=== PATIENT | female | born 1950 | race Caucasian/White ===

== ENCOUNTER 2016-11-02 10:44 | Outpatient (CLI) | payer OTHER | END 2016-11-02 10:45 | disposition home or self-care (01) | DX: Z12.11 Encounter for screening for malignant neoplasm of colon (principal) ==

== ENCOUNTER 2016-11-20 06:35 | Outpatient (CLI) | payer OTHER | END 2016-11-20 06:36 | disposition home or self-care (01) | DX: Z12.11 Encounter for screening for malignant neoplasm of colon (principal) ==

== ENCOUNTER 2016-12-04 02:28 | Inpatient (IN) | payer OTHER ==
[2016-12-04] MEDS ORDERED: IOPAMIDOL-300 100 ML VIAL IVP ONE (05:53)
[2016-12-04] MEDS ORDERED: ENOXAPARIN 120 MG/0.8 ML SYRINGE SUBQ STA (06:28)
[2016-12-04] MEDS ORDERED: MORPHINE 2 MG/ML SYRINGE IVP STA (06:52)
[2016-12-04] MEDS ORDERED: MORPHINE 2 MG/ML SYRINGE ONE (07:27)
[2016-12-04] MEDS ORDERED: ZOLPIDEM 5 MG TABLET PO PRN (08:22)
[2016-12-04] MEDS ORDERED: HYDROcod/ACETAM 10 MG/325 MG TABLET PO PRN (08:22)
[2016-12-04] MEDS ORDERED: ONDANSETRON 4 MG/2 ML VIAL IVP PRN (08:22)
[2016-12-04] MEDS ORDERED: HYDROcod/ACETAM 5/325 MG TABLET PO PRN (08:22)
[2016-12-04] MEDS ORDERED: ACETAMINOPHEN 325 MG TABLET PO PRN (08:22)
[2016-12-04] MEDS: MORPHINE 2 MG/ML SYRINGE IVP PRN ×4 (10:21→18:34)
[2016-12-04] MEDS: POLYETHYLENE GLYCOL 3350 17 GM PACKET PO SCH (10:25)
[2016-12-04] MEDS: SODIUM CHLORIDE FLUSH 0.9% 10 ML SYRINGE IVP SCH ×2 (12:35→21:59)
[2016-12-04] MEDS ORDERED: RIVAROXABAN 15 MG TABLET PO SCH (13:00)
[2016-12-04] MEDS: SODIUM CHLORIDE FLUSH 0.9% 10 ML SYRINGE IVP PRN ×2 (15:59→18:34)
[2016-12-04] MEDS: ENOXAPARIN 120 MG/0.8 ML SYRINGE SUBQ SCH (21:59)
[2016-12-05] MEDS: MORPHINE 2 MG/ML SYRINGE IVP PRN (00:23)
[2016-12-05] MEDS: SODIUM CHLORIDE FLUSH 0.9% 10 ML SYRINGE IVP PRN (00:26)
[2016-12-05] MEDS: PANTOPRAZOLE 40 MG TABLET PO SCH (06:23)
[2016-12-05] MEDS: SODIUM CHLORIDE FLUSH 0.9% 10 ML SYRINGE IVP SCH ×3 (06:24→20:33)
[2016-12-05] MEDS: POLYETHYLENE GLYCOL 3350 17 GM PACKET PO SCH (10:22)
[2016-12-05] MEDS: ENOXAPARIN 120 MG/0.8 ML SYRINGE SUBQ SCH ×2 (10:23→20:33)
[2016-12-06] MEDS: PANTOPRAZOLE 40 MG TABLET PO SCH (05:59)
[2016-12-06] MEDS: SODIUM CHLORIDE FLUSH 0.9% 10 ML SYRINGE IVP SCH (06:00)
[2016-12-06] MEDS ORDERED: SENNA 8.6 MG TABLET PO SCH (09:00)
[2016-12-06] MEDS ORDERED: DOCUSATE SODIUM 250 MG CAPSULE PO SCH (09:00)
[2016-12-06] MEDS: POLYETHYLENE GLYCOL 3350 17 GM PACKET PO SCH (09:11)
[2016-12-06] MEDS: ENOXAPARIN 120 MG/0.8 ML SYRINGE SUBQ SCH (09:13)
== END 2016-12-06 12:45 | disposition home or self-care (01) | DRG 176 ==
DX: I26.99 Other pulmonary embolism without acute cor pulmonale (principal); R91.8 Other nonspecific abnormal finding of lung field; Z86.718 Personal history of other venous thrombosis and embolism; Z83.2 Family history of diseases of the blood and blood-forming organs and certain disorders involving the immune mechanism

== ENCOUNTER 2017-03-23 08:00 | Outpatient (CLI) | payer OTHER ==
[2017-03-23 18:40] LABS: BASOPHILS # (AUTO) 0.1 10^3/uL (0.0-0.1); EOSINOPHILS # (AUTO) 0.3 10^3/uL (0.0-0.7); EOSINOPHILS % (AUTO) 4.3 %; HCT - HEMATOCRIT 45.3 % (37.0-47.0); HGB - HEMOGLOBIN 14.7 g/dL (12.0-16.0); LYMPHOCYTES # (AUTO) 1.8 10^3/uL (1.5-3.5); LYMPHOCYTES % (AUTO) 29.6 %; MEAN CORPUSCULAR HEMOGLOBIN 28.8 pg (27.0-31.0); MEAN CORPUSCULAR HGB CONC 32.4 g/dL (32.0-36.0); MEAN CORPUSCULAR VOLUME 88.8 fL (81.0-99.0); MEAN PLATELET VOLUME 9.6 fL (7.9-10.8); MONOCYTES # (AUTO) 0.5 10^3/uL (0.0-1.0); MONOCYTES % (AUTO) 8.3 %; NEUTROPHILS # (AUTO) 3.4 10^3/uL (1.5-6.6); NEUTROPHILS % (AUTO) 56.8 %; RED CELL DISTRIBUTION WIDTH 15.3 % (12.0-15.0)
[2017-03-23 18:47] LABS: ALBUMIN/GLOBULIN RATIO 1.5 (1.0-2.2); BILIRUBIN,TOTAL 0.6 mg/dL (0.2-1.0); CALCIUM 9.4 mg/dL (8.5-10.3); CREATININE 0.8 mg/dL (0.4-1.0); POTASSIUM 3.7 mmol/L (3.5-5.0); TOTAL PROTEIN 7.4 g/dL (6.7-8.2)
== END 2017-03-23 08:01 | disposition home or self-care (01) ==
LOC: LAB.F 08:00
PROVIDERS: ATTEND Physician Assistant Medical
DX: Z51.81 Encounter for therapeutic drug level monitoring (principal)
CPT/HCPCS: 36415; 80053; 85025

== ENCOUNTER 2017-06-16 16:14 | Outpatient (CLI) | payer OTHER ==
[2017-06-16 18:31] LABS: BASOPHILS % (AUTO) 0.6 %; EOSINOPHILS # (AUTO) 0.4 10^3/uL (0.0-0.7); EOSINOPHILS % (AUTO) 5.7 %; HCT - HEMATOCRIT 45.1 % (37.0-47.0); HGB - HEMOGLOBIN 14.7 g/dL (12.0-16.0); LYMPHOCYTES # (AUTO) 1.9 10^3/uL (1.5-3.5); LYMPHOCYTES % (AUTO) 29.2 %; MEAN CORPUSCULAR HEMOGLOBIN 29.2 pg (27.0-31.0); MEAN CORPUSCULAR HGB CONC 32.6 g/dL (32.0-36.0); MEAN CORPUSCULAR VOLUME 89.6 fL (81.0-99.0); MEAN PLATELET VOLUME 9.5 fL (7.9-10.8); MONOCYTES # (AUTO) 0.7 10^3/uL (0.0-1.0); MONOCYTES % (AUTO) 11.1 %; NEUTROPHILS # (AUTO) 3.4 10^3/uL (1.5-6.6); NEUTROPHILS % (AUTO) 53.4 %; NUCLEATED RED BLOOD CELLS AUTO 0.1 /100WBC; RED BLOOD COUNT 5.03 10^6/uL (4.20-5.40); RED CELL DISTRIBUTION WIDTH 15.1 % (12.0-15.0); UNCORRECTED WHITE BLOOD COUNT 6.3 x10^3/uL; WHITE BLOOD COUNT 6.3 x10^3/uL (4.8-10.8)
[2017-06-16 18:52] LABS: ALBUMIN/GLOBULIN RATIO 1.4 (1.0-2.2); BILIRUBIN,TOTAL 0.3 mg/dL (0.2-1.0); CALCIUM 9.2 mg/dL (8.5-10.3); CREATININE 0.8 mg/dL (0.4-1.0); POTASSIUM 4.1 mmol/L (3.5-5.0); TOTAL PROTEIN 7.3 g/dL (6.7-8.2)
== END 2017-06-16 16:15 | disposition home or self-care (01) ==
LOC: LAB.F 16:14
PROVIDERS: ATTEND Physician Assistant Medical
DX: R06.02 Shortness of breath (principal)
CPT/HCPCS: 36415; 80053; 85025

== ENCOUNTER 2017-06-17 12:17 | Outpatient (CLI) | payer OTHER ==
--- NOTE | 2017-06-17 17:13 | CT Report ---
CT PULMONARY ANGIOGRAM: 06/17/2017 CLINICAL INDICATION: Atypical chest pain, shortness of breath, fatigue, malaise. COMPARISON: 12/04/[address] images of the chest were obtained with 100 mL Isovue-300 intravenously. Sagittal and brasher l 3D reconstructions were performed. In accordance with CT protocol optimization, one or more of the following dose reduction techniques w ere utilized for this exam: automated exposure control, adjustment of mA and/or KV based on patient size, or use of iterative reconstructive technique. The heart and great vessels are unremarkable. Previously seen bilateral pulmonary emboli have resolv ed. No new emboli are seen. No hilar or mediastinal lymphadenopathy is present. The lungs again de monstrate patchy ground-glass opacities, without significant interval change. Small fissural nodule in the left lung is stable, measuring 8 mm. No effusion or pneumothorax is present. Osseous structu res demonstrate degenerative changes. Limited evaluation of upper abdominal structures demonstrates normal adrenal glands. IMPRESSION: NO EVIDENCE OF PULMONARY EMBOLUS. STABLE GROUND-GLASS OPACITIES. JOB #: [id number] EXT JOB #:[id number]
== END 2017-06-17 12:18 | disposition home or self-care (01) ==
LOC: DI 12:17
PROVIDERS: ATTEND Physician Assistant Medical
DX: R91.8 Other nonspecific abnormal finding of lung field (principal)
CPT/HCPCS: 71275

== ENCOUNTER 2018-03-31 10:57 | Outpatient (CLI) | payer OTHER ==
--- NOTE | 2018-03-31 20:02 | CT Report ---
Procedure Date: 03/31/2018 Accession Number: [id number] / [id number] Procedure: CT - Chest W/O CPT Code: FULL RESULT: EXAM: CT CHEST EXAM DATE: 03/31/2018 11:14 AM. CLINICAL HISTORY: Pulmonary nodule. COMPARISONS: CTA chest 06/17/2017. TECHNIQUE: Routine helical CT imaging was performed through the chest. IV contrast: None. Reconstructions: Coronal and sagittal. In accordance with CT protocol optimization, one or more of the following dose reduction techniques were utilized for this exam: automated exposure control, adjustment of mA and/or KV based on patient size, or use of iterative reconstructive technique. FINDINGS: Lungs/Pleura: Stable 6 x 8 mm juxtafissural medial left lower lobe nodule (29/4) and 2 mm focal thickening lateral left oblique fissure. Stable 2 mm right upper lobe (25/4) and left upper lobe nodules (25). No new or enlarging nodule. Mild dependent and basilar atelectasis or scarring. No consolidation or vascular congestion. No central endobronchial obstructing lesion or bronchiectasis. No pneumothorax or pleural effusion. Mediastinum: No mediastinal or hilar adenopathy. Normal heart size without pericardial effusion. Stable caliber mediastinal vasculature. Bones: Degenerative changes of the spine suggestive of DISH. No aggressive bone destructive process. Visualized Abdomen: Mild hepatic steatosis. No adrenal nodule. A stable exophytic posterior left renal nodule measures 1.3 cm in diameter. IMPRESSION: 1. Stable small lung nodules, including an 8 mm juxtafissural left lower lobe nodule which could represent intrapulmonary node. Recommend further follow-up at 18-12 months per Fleischner Society guidelines. 2. No pathologic adenopathy. RADIA
== END 2018-03-31 10:58 | disposition home or self-care (01) ==
LOC: DI 10:57
PROVIDERS: ATTEND Physician Assistant Medical
DX: R91.8 Other nonspecific abnormal finding of lung field (principal)
CPT/HCPCS: 71250

== ENCOUNTER 2018-07-11 14:08 | Outpatient (CLI) | payer OTHER ==
[2018-07-11 18:00] LABS: BASOPHILS % (AUTO) 0.7 %; EOSINOPHILS # (AUTO) 0.2 10^3/uL (0.0-0.7); EOSINOPHILS % (AUTO) 4.5 %; HGB - HEMOGLOBIN 14.4 g/dL (12.0-16.0); LYMPHOCYTES # (AUTO) 1.6 10^3/uL (1.5-3.5); LYMPHOCYTES % (AUTO) 30.8 %; MEAN CORPUSCULAR HEMOGLOBIN 29.4 pg (27.0-31.0); MEAN CORPUSCULAR HGB CONC 33.4 g/dL (32.0-36.0); MEAN PLATELET VOLUME 9.6 fL (7.9-10.8); MONOCYTES # (AUTO) 0.6 10^3/uL (0.0-1.0); MONOCYTES % (AUTO) 10.6 %; NEUTROPHILS # (AUTO) 2.8 10^3/uL (1.5-6.6); NEUTROPHILS % (AUTO) 53.4 %; PLT - PLATELET COUNT 198 10^3/uL (130-450); RED BLOOD COUNT 4.89 10^6/uL (4.20-5.40); RED CELL DISTRIBUTION WIDTH 14.7 % (12.0-15.0); WHITE BLOOD COUNT 5.3 x10^3/uL (4.8-10.8)
[2018-07-11 18:13] LABS: ALBUMIN/GLOBULIN RATIO 1.3 (1.0-2.2); BILIRUBIN,TOTAL 0.5 mg/dL (0.2-1.0); CALCIUM 9.1 mg/dL (8.5-10.3); CREATININE 0.9 mg/dL (0.4-1.0)
== END 2018-07-11 14:09 | disposition home or self-care (01) ==
LOC: LAB.F 14:08
PROVIDERS: ATTEND Physician Assistant Medical
DX: Z79.01 Long term (current) use of anticoagulants (principal); Z51.81 Encounter for therapeutic drug level monitoring
CPT/HCPCS: 36415; 80053; 85025

== ENCOUNTER 2019-01-30 15:45 | Outpatient (CLI) | payer OTHER ==
--- NOTE | 2019-01-31 10:36 | CT Report ---
Reason: PULMONARY NODULE Procedure Date: 01/30/2019 Accession Number: [id number] / [id number] Procedure: CT - CHEST WO CPT Code: FULL RESULT: EXAM: CT CHEST EXAM DATE: 01/30/2019 04:03 PM. CLINICAL HISTORY: Pulmonary nodule. COMPARISONS: CHEST W/O 03/31/2018 11:12 AM. TECHNIQUE: Routine helical CT imaging was performed through the chest. IV contrast: None. Reconstructions: Coronal and sagittal. In accordance with CT protocol optimization, one or more of the following dose reduction techniques were utilized for this exam: automated exposure control, adjustment of mA and/or KV based on patient size, or use of iterative reconstructive technique. FINDINGS: Lungs/Pleura: Stable 8 mm juxta fissural medial left lower lobe nodule now on image 34 of series 3. Stable 2 mm nodule in the left upper lobe is now on image 30. A 2 mm right upper lobe nodule is also stable on image 29. A tiny right lower lobe sub-2 mm nodule image 28 is stable. A 3 mm right upper lobe nodule image 30 is stable. A 2 mm right lower lobe nodule image 33 is stable. A 2 mm right lower lobe nodule image 46 is stable. A 2 mm nodule in the left lower lobe on image 45 is stable a 3 mm nodule in the left lower lobe is stable on image 42. A sub-2 mm nodule on image 40 in the left lower lobe is stable. A 3 mm nodule on image 36 in the left lower lobe is stable. A 3 mm right upper lobe nodule on image 24 is now slightly more prominent which is potentially due to differences in technique. Mediastinum: A few prominent mediastinal lymph nodes do not meet size criteria. There is no definite hilar lymphadenopathy. There is no pericardial effusion. Bones: No aggressive osseous lesions are detected. Visualized Abdomen: A 1.6 cm left renal cyst measures slightly greater than simple, indeterminate. Other: None. IMPRESSION: Long-term stability of numerous pulmonary nodules. A 3 mm nodule in the right upper lobe appears slightly more prominent, possibly unchanged accounting for differences in the technique. Indeterminate left renal cyst. RECOMMENDATIONS: Left renal ultrasound to determine whether this cyst can be characterized as simple. Depending on the patient's risk factors, low-dose CT of the chest to followup the 3 mm right upper lobe nodule for manager long term care stability versus no further followup given the long-term stability of all other nodules and possible stability of this nodule are reasonable. RADIA
== END 2019-01-30 15:46 | disposition home or self-care (01) ==
LOC: DI 15:45
PROVIDERS: ATTEND Physician Assistant Medical
DX: R91.8 Other nonspecific abnormal finding of lung field (principal)
CPT/HCPCS: 71250

== ENCOUNTER 2019-03-23 16:04 | Outpatient (CLI) | payer OTHER ==
--- NOTE | 2019-03-23 23:57 | Ultrasound Report ---
Reason: KIDNEY MASS Procedure Date: 03/23/2019 Accession Number: [id number] / [id number] Procedure: US - Retroperitoneal CPT Code: FULL RESULT: EXAM: RENAL ULTRASOUND EXAM DATE: 03/23/2019 04:48 PM. CLINICAL HISTORY: Renal mass/cyst seen on prior CT. COMPARISON: CHEST W/O 01/30/2019 4:01 PM. TECHNIQUE: Real-time scanning was performed with static images obtained. FINDINGS: Right Kidney: 10.6 x 4.9 x 4.7 cm. Normal echotexture with no stones, contour-deforming masses, or hydronephrosis. Left Kidney: 11.6 x 5.4 x 4.9 cm. Normal echotexture with no stones, contour-deforming masses, or hydronephrosis. Superior pole 1.5 cm cyst noted. Bladder: Bilateral jets seen. The prevoid bladder volume was 83 cc. The postvoid bladder volume was 7 cc. Other: None. IMPRESSION: Superior pole left renal cyst corresponding to the CT abnormality, otherwise unremarkable renal ultrasound. RADIA
== END 2019-03-23 16:05 | disposition home or self-care (01) ==
LOC: DI 16:04
PROVIDERS: ATTEND Physician Assistant Medical
DX: Q61.01 Congenital single renal cyst (principal)
CPT/HCPCS: 76770

== ENCOUNTER 2020-02-07 15:47 | Outpatient (CLI) | payer OTHER | END 2020-02-07 15:48 | disposition home or self-care (01) | LOC: COV 15:47 | PROVIDERS: ATTEND Family Medicine | DX: R53.83 Other fatigue (principal) | CPT/HCPCS: 81599 ==

== ENCOUNTER 2020-08-27 09:15 | Outpatient (CLI) | payer OTHER | END 2020-08-27 09:16 | disposition home or self-care (01) | LOC: COV 09:15 | PROVIDERS: ATTEND Family Medicine | DX: R05 Cough (principal); Z20.828 Contact with and (suspected) exposure to other viral communicable diseases; R09.81 Nasal congestion; R68.83 Chills (without fever); J02.9 Acute pharyngitis, unspecified ==

== ENCOUNTER 2020-09-02 08:00 | Outpatient (CLI) | payer OTHER ==
[2020-09-02 15:35] LABS: BASOPHILS % (AUTO) 0.8 %; EOSINOPHILS # (AUTO) 0.3 10^3/uL (0.0-0.7); EOSINOPHILS % (AUTO) 5.7 %; HGB - HEMOGLOBIN 15.5 g/dL (12.0-16.0); LYMPHOCYTES # (AUTO) 1.2 10^3/uL (1.5-3.5); LYMPHOCYTES % (AUTO) 25.1 %; MEAN CORPUSCULAR HGB CONC 31.1 g/dL (32.0-36.0); MEAN CORPUSCULAR VOLUME 93.3 fL (81.0-99.0); MEAN PLATELET VOLUME 10.6 fL (7.9-10.8); MONOCYTES # (AUTO) 0.5 10^3/uL (0.0-1.0); MONOCYTES % (AUTO) 9.5 %; NEUTROPHILS # (AUTO) 2.9 10^3/uL (1.5-6.6); NEUTROPHILS % (AUTO) 58.5 %; PLT - PLATELET COUNT 219 10^3/uL (130-450); RED BLOOD COUNT 5.34 10^6/uL (4.20-5.40)
[2020-09-02 15:43] LABS: ALBUMIN 4.3 g/dL (3.2-5.5); ALBUMIN/GLOBULIN RATIO 1.4 (1.0-2.2); BILIRUBIN,TOTAL 0.8 mg/dL (0.2-1.0); CALCIUM 9.5 mg/dL (8.5-10.3); CREATININE 0.8 mg/dL (0.4-1.0); TOTAL PROTEIN 7.3 g/dL (6.7-8.2)
== END 2020-09-02 23:59 | disposition home or self-care (01) ==
LOC: LAB.S 08:00
PROVIDERS: ATTEND Physician Assistant Medical
DX: B34.9 Viral infection, unspecified (principal)
CPT/HCPCS: 36415; 80053; 85025

== ENCOUNTER 2020-09-27 15:15 | Outpatient (CLI) | payer OTHER ==
--- NOTE | 2020-09-27 17:26 | CT Report ---
PROCEDURE: CHEST WO INDICATIONS: PULMONARY NODULE TECHNIQUE: Noncontrast 5 mm thick sections acquired from the pulmonary apices to the posterior costophrenic angl es. 7 mm thick coronal and sagittal MIP reformats were then acquired. For radiation dose reduction, the following was used: automated exposure control, adjustment of mA and/or kV according to patient size. COMPARISON: CT chest 04/01/2018, 01/31/2019. FINDINGS: Image quality: Excellent. Lungs and pleura: No acute air space opacities. No pleural effusions or pneumothorax. Central and peripheral airways are patent and normal in caliber. Previously identified scattered bilateral pulmo nary nodules are unchanged in size and number. No new nodules are identified. Mediastinum: Heart size is normal. No pericardial effusion. No mediastinal adenopathy by size crit eria. Thoracic aorta and central pulmonary arteries are normal in size. Esophagus is normal in cecy mickey. No hiatal hernia. Bones and chest wall: No suspicious bony lesions. No vertebral body compression fractures. No axil therese or supraclavicular adenopathy by size criteria. The thyroid is normal in size. Abdomen: Stable appearance of indeterminate exophytic left renal lesion, noted to be renal cyst on u ltrasound of 03/24/2019. Visualized upper abdominal solid organs and bowel loops appear normal in the absence of contrast. IMPRESSION: Stable appearance of bilateral pulmonary nodules compared to 2018 and 2019. The 3 mm right upper lobe nodule partially minimally increase in size in 2019 is unchanged. Given stability, findings are like ly benign and no additional follow-up is recommended unless clinically indicated. Reviewed by: Adelaida Giles MD on 09/27/2020 5:24 PM PST Approved by: Adelaida Giles MD on 09/27/2020 5:24 PM PST Station ID: [id number]
== END 2020-09-27 15:16 | disposition home or self-care (01) ==
LOC: DI 15:15
PROVIDERS: ATTEND Physician Assistant Medical
DX: R91.1 Solitary pulmonary nodule (principal)
CPT/HCPCS: 71250

== ENCOUNTER 2021-03-07 08:00 | Outpatient (CLI) | payer OTHER | END 2021-03-07 23:59 | disposition home or self-care (01) | LOC: LAB.S 08:00 | PROVIDERS: ATTEND Emergency Medicine | DX: N39.0 Urinary tract infection, site not specified (principal); M54.5 Low back pain | CPT/HCPCS: 81001; 87086 ==

== ENCOUNTER 2021-03-11 08:00 | Outpatient (CLI) | payer OTHER ==
--- NOTE | 2021-03-11 12:32 | XRAY Report ---
PROCEDURE: Abdomen Acute INDICATIONS: FLANK PAIN TECHNIQUE: One view chest and two views of the abdomen were acquired. COMPARISON: None FINDINGS: Surgical changes and devices: None. Chest: Lungs are clear. Heart size is normal. No pleural effusions. No pneumoperitoneum. Abdomen: Bowel gas pattern is normal. No suspicious calcifications. Visualized solid organ contour s appear normal. Bones: No suspicious bony lesions. IMPRESSION: No visualized cause of flank pain. Reviewed by: Adelaida Giles MD on 03/11/2021 12:31 PM PDT Approved by: Adelaida Giles MD on 03/11/2021 12:31 PM PDT Station ID: [id number]
== END 2021-03-11 23:59 | disposition home or self-care (01) ==
LOC: DI.S 08:00
PROVIDERS: ATTEND Physician Assistant Medical
DX: M54.9 Dorsalgia, unspecified (principal); R10.9 Unspecified abdominal pain

== ENCOUNTER 2021-03-31 15:18 | Outpatient (CLI) | payer OTHER | END 2021-03-31 15:19 | disposition home or self-care (01) | LOC: LAB.S 15:18 | PROVIDERS: ATTEND Physician Assistant | DX: Z79.01 Long term (current) use of anticoagulants (principal) | CPT/HCPCS: 36416; 85610 ==

== ENCOUNTER 2021-05-08 14:52 | Outpatient (CLI) | payer OTHER ==
--- NOTE | 2021-05-08 16:00 | MRI Report ---
PROCEDURE: Brain W/O INDICATIONS: TIA TECHNIQUE: Noncontrast axial T1 spin echo, axial T2 fast spin echo, sagittal and axial FLAIR, coronal T2 fast sp in echo, axial gradient echo, axial diffusion and ADC through the brain. COMPARISON: None. FINDINGS: Image quality: Excellent. CSF Spaces: Basal cisterns are patent. No extra-axial fluid collections. Ventricles are normal in size and shape. Brain: No intracranial masses or hemorrhage. Age-related volume loss and moderate small vessel ische jamal change. Brainstem appears normal. Diffusion-weighted images demonstrate no acute ischemic insult . No chronic ischemic insults. Normal intravascular flow voids are present. Skull and face: Calvarium has normal marrow signal. Orbits appear normal. Sinuses: Left sphenoid sinus mucosal thickening and mild air-fluid level. IMPRESSION: 1. Age-related volume loss and moderate small vessel ischemic change. 2. No evidence acute stroke, hemorrhage, or mass. 3. Mild acute on chronic left sphenoid sinusitis. Reviewed by: Jim To MD on 05/08/2021 3:59 PM PDT Approved by: Jim To MD on 05/08/2021 3:59 PM PDT Station ID: [id number]
== END 2021-05-08 14:53 | disposition home or self-care (01) ==
LOC: DI 14:52
PROVIDERS: ATTEND Physician Assistant
DX: J32.9 Chronic sinusitis, unspecified (principal)

== ENCOUNTER 2021-06-03 09:33 | Outpatient (CLI) | payer OTHER ==
[2021-06-03 14:47] LABS: INR 1.1 (0.8-1.2); PT - PROTHROMBIN TIME 12.7 secs (9.9-12.6)
[2021-06-03 16:21] LABS: CHOL/HDL RATIO 4.2 (<4.4); CHOLESTEROL 236 mg/dL; HDL CHOLESTEROL 56 mg/dL; LDL CHOLESTEROL,CALCULATED 158 mg/dL; LDL/HDL RATIO 2.8 (<4.4); TRIGLYCERIDES 112 mg/dL; VLDL CHOLESTEROL 22 mg/dL
== END 2021-06-03 09:34 | disposition home or self-care (01) ==
LOC: LAB.S 09:33
PROVIDERS: ATTEND Physician Assistant
DX: Z00.00 Encounter for general adult medical examination without abnormal findings (principal); Z79.01 Long term (current) use of anticoagulants; R53.83 Other fatigue; Z78.0 Asymptomatic menopausal state; Z51.81 Encounter for therapeutic drug level monitoring; D68.51 Activated protein C resistance
CPT/HCPCS: 36415; 80061; 82306; 83721; 85610

== ENCOUNTER 2021-09-07 11:30 | Outpatient (CLI) | payer OTHER | END 2021-09-07 11:31 | disposition critical access hospital (66) | LOC: EMS 11:30 | DX: R53.1 Weakness (principal); R55 Syncope and collapse | CPT/HCPCS: A0425; A0429 ==

== ENCOUNTER 2021-09-07 12:12 | Inpatient (IN) | payer MEDICARE, OTHER ==
[2021-09-07] MEDS ORDERED: HYDROmorphone 1 MG/ML CARPUJECT IVP STA (12:26)
[2021-09-07] MEDS ORDERED: SODIUM CHLORIDE 0.9% 1,000 ML IV STA (12:26)
[2021-09-07] MEDS ORDERED: TETANUS/DIPHTHERIA/PERTUSSIS 0.5 ML SYRINGE IM ONE (12:26)
--- NOTE | 2021-09-07 12:30 | ED Physician Documentation ---
History of Present Illness - Stated complaint Stated Complaint: COVID + GLF - Chief complaint Chief Complaint: General - History obtained from History obtained from: Patient, EMS - Additonal information Additional information: 71-year-old woman with history of pulmonary emboli in November 2016 on Xarelto. Otherwise fairly healthy. She is a little vague on the time course but started to feel ill may be a week or week and a half ago. Subsequently it sounded like she had positive antigen testing for Covid done by [facility] a little less than a week ago. She has progressively declined since then with generalized weakness and multiple episodes of syncope. She had a syncopal episode she thinks maybe 4 to 5 days ago where she fell and hit her head. She has a lot of facial pain and back pain from that. She does not recall the incident. Over the last few days she has been bedbound and dysfunctional due to weakness. Incontinent of stool and bladder. When queried what changed today to necessitate coming to the emergency department when the trauma was a few days ago she notes that her can no longer take care of her because now she is incontinent of stool, he was doing okay when she was just incontinent of urine. She is not vaccinated against Covid and does not regret that decision despite her current illness. Review of Systems Ten Systems: 10 systems reviewed and negative Constitutional: reports: Chills, Myalgias, Fatigue Nose: denies: Rhinorrhea / runny nose Throat: denies: Sore throat Cardiac: denies: Chest pain / pressure, Palpitations Respiratory: denies: Dyspnea, Cough PD PAST MEDICAL HISTORY - Past Medical History Cardiovascular: Deep vein thrombosis - Past Surgical History Past Surgical History: Yes General: Appendectomy HEENT: Tonsil/Adenoidectomy - Present Medications Home Medications: Ambulatory Orders Medication Instructions Recorded Confirmed Rivaroxaban [Xarelto] 20 mg PO DAILY 09/07/21 09/07/21 - Allergies Allergies/Adverse Reactions: Allergies Allergy/AdvReac Type Severity Reaction Status Date / Time Sulfa (Sulfonamide Allergy Hives Verified 09/07/21 12:25 Antibiotics) - Social History Does the pt smoke?: No Smoking Status: Never smoker Does the pt drink ETOH?: No Does the pt have substance abuse?: No - Immunizations Immunizations are current?: No - POLST Patient has POLST: No PD ED PE NORMAL - Vitals Vital signs reviewed: Yes - General General: Alert and oriented X 3, Well developed/nourished, Other (She is quite generally weak, cannot sit up unassisted.) - HEENT HEENT: Other (Bilateral raccoon eyes and tender over the bridge of the nose without other facial bony tenderness. No evidence of entrapment.) - Neck Neck: Supple, no meningeal sign, No bony TTP - Cardiac Cardiac: RRR, No murmur - Respiratory Respiratory: No respiratory distress, Clear bilaterally - Abdomen Abdomen: Normal bowel sounds, Soft, Non tender - Back Back: Other (Tender to the mid and upper thoracic spine as well as the mid lumbar spine) - Derm Derm: Normal color, Warm and dry - Neuro Neuro: Alert and oriented X 3, Normal speech Eye Opening: Spontaneous Motor: Obeys Commands Verbal: Oriented GCS Score: 15 Results - Vitals Vitals: Vital Signs - 24 hr 09/07/21 09/07/21 09/07/21 12:21 12:55 13:25 Temperature 36.9 C 36.9 C 36.6 C Heart Rate 95 78 75 Respiratory 17 15 14 Rate Blood Pressure 133/65 H 111/81 H 117/59 L O2 Saturation 97 92 97 09/07/21 09/07/21 09/07/21 14:00 14:30 15:40 Temperature 36.7 C 36.7 C Heart Rate 77 75 71 Respiratory 21 17 17 Rate Blood Pressure 111/59 L 126/62 O2 Saturation 98 96 96 09/07/21 16:12 Temperature Heart Rate 72 Respiratory 17 Rate Blood Pressure 199/63 H O2 Saturation 96 Oxygen O2 Source Room air - EKG (time done) 1333 Rate: Rate (enter#) (78) Rhythm: NSR [place]: Normal Intervals: Normal [place] QRS: Normal Ischemia: Normal ST segments - Labs Labs: Laboratory Tests 09/07/21 09/07/21 09/07/21 12:35 12:35 12:35 WBC 3.9 L RBC 5.55 H Hgb 16.2 H Hct 49.6 H MCV 89.4 MCH 29.2 MCHC 32.7 RDW 13.2 Plt Count 123 L MPV 10.8 Neut # (Auto) 2.8 Lymph # (Auto) 0.7 L [place] # (Auto) 0.4 Eos # (Auto) 0.0 Baso # (Auto) 0.0 Absolute Nucleated RBC 0.00 Nucleated RBC % 0.0 D-Dimer 358.5 H Sodium 135 Potassium 3.8 Chloride 97 L Carbon Dioxide 29 Anion Gap 9.0 BUN 13 Creatinine 0.8 Estimated GFR (MDRD) 71 L Glucose 104 H Calcium 8.8 Magnesium 2.3 Total Bilirubin 1.2 H AST 32 ALT 32 Alkaline Phosphatase 64 Troponin I High Sens Total Protein 7.3 Albumin 3.7 Globulin 3.6 Albumin/Globulin Ratio 1.0 Nasal Adenovirus (PCR) Nasal B. parapertussis DNA (PCR) Nasal Coronavir 229E PCR Nasal Coronavir HKU1 PCR Nasal Coronavir NL63 PCR Nasal Coronavir OC43 PCR Nasal Enterovir/Rhinovir PCR Nasal Influenza B PCR Nasal Influenza A PCR Nasal Parainfluen 1 PCR Nasal Parainfluen 2 PCR Nasal Parainfluen 3 PCR Nasal Parainfluen 4 PCR Nasal RSV (PCR) Nasal B.pertussis DNA PCR Nasal C.pneumoniae (PCR) Matthew Human Metapneumo PCR Nasal M.pneumoniae (PCR) Nasal SARS-CoV-2 (PCR) 09/07/21 09/07/21 12:35 12:35 WBC RBC Hgb Hct MCV MCH MCHC RDW Plt Count MPV Neut # (Auto) Lymph # (Auto) [place] # (Auto) Eos # (Auto) Baso # (Auto) Absolute Nucleated RBC Nucleated RBC % D-Dimer Sodium Potassium Chloride Carbon Dioxide Anion Gap BUN Creatinine Estimated GFR (MDRD) Glucose Calcium Magnesium Total Bilirubin AST ALT Alkaline Phosphatase Troponin I High Sens 4.7 Total Protein Albumin Globulin Albumin/Globulin Ratio Nasal Adenovirus (PCR) NOT DETECTED Nasal B. parapertussis DNA (PCR) NOT DETECTED Nasal Coronavir 229E PCR NOT DETECTED Nasal Coronavir HKU1 PCR NOT DETECTED Nasal Coronavir NL63 PCR NOT DETECTED Nasal Coronavir OC43 PCR NOT DETECTED Nasal Enterovir/Rhinovir PCR NOT DETECTED Nasal Influenza B PCR NOT DETECTED Nasal Influenza A PCR NOT DETECTED Nasal Parainfluen 1 PCR NOT DETECTED Nasal Parainfluen 2 PCR NOT DETECTED Nasal Parainfluen 3 PCR NOT DETECTED Nasal Parainfluen 4 PCR NOT DETECTED Nasal RSV (PCR) NOT DETECTED Nasal B.pertussis DNA PCR NOT DETECTED Nasal C.pneumoniae (PCR) NOT DETECTED Matthew Human Metapneumo PCR NOT DETECTED Nasal M.pneumoniae (PCR) NOT DETECTED Nasal SARS-CoV-2 (PCR) DETECTED A - Rads (name of study) CT of the head and facial bones demonstrates no intracranial abnormality. She does have nasal bone fractures and likely blood in the paranasal sinuse Radiology: EMP read contemporaneously CT of the chest with contrast demonstrates interstitial infiltrates consistent with Covid pneumonia, no trauma Radiology: EMP read contemporaneously CT of the cervical spine shows no trauma, she does have degenerative changes and apical interstitial infiltrates Radiology: EMP read contemporaneously CT of the abdomen pelvis, 20% anterior wedge deformity compression of L1. Otherwise negative Radiology: EMP read contemporaneously PD MEDICAL DECISION MAKING - ED course ED course: 71-year-old woman who is anticoagulated has had has had multiple syncopal episodes likely related to volume depletion related to recent diagnosis of Covid. She is not hypoxic here but is profoundly weak unable to sit up on her own without assistance. She has multiple falls multiple injuries but thankfully on advanced imaging the only major posttraumatic findings are nondisplaced nasal bone fracture and a 20% compression deformity of the anterior part of L1 which can be managed conservatively. She was unable to be discharged home due to her condition and I spoke with Dr. Ocasio for observation. Departure - Departure Disposition: ED Place in Observation Clinical Impression: Pneumonia due to COVID-19 virus, Adequate anticoagulation on anticoagulant therapy, Generalized weakness Syncope Qualifiers: Syncope type: unspecified Qualified Code(s): R55 - Syncope and collapse Facial contusion Qualifiers: Encounter type: initial encounter Qualified Code(s): S00.83XA - Contusion of other part of head, initial encounter Nasal bone fracture Qualifiers: Encounter type: initial encounter Fracture type: closed Qualified Code(s): S02.2XXA - Fracture of nasal bones, initial encounter for closed fracture Diarrhea Qualifiers: Diarrhea type: presumed infectious Qualified Code(s): R19.7 - Diarrhea, unspecified Incontinence of bowel Qualifiers: Fecal incontinence type: full incontinence of feces Qualified Code(s): R15.9 - Full incontinence of feces Compression fracture of L1 lumbar vertebra Qualifiers: Encounter type: initial encounter Qualified Code(s): S32.010A - Wedge compression fracture of first lumbar vertebra, initial encounter for closed fracture Condition: Fair Discharge Date/Time: 09/07/21 17:20
[2021-09-07 12:49] LABS: BASOPHILS % (AUTO) 0.3 %; EOSINOPHILS % (AUTO) 0.5 %; HCT - HEMATOCRIT 49.6 % (37.0-47.0); HGB - HEMOGLOBIN 16.2 g/dL (12.0-16.0); LYMPHOCYTES # (AUTO) 0.7 10^3/uL (1.5-3.5); MEAN CORPUSCULAR HEMOGLOBIN 29.2 pg (27.0-31.0); MEAN CORPUSCULAR HGB CONC 32.7 g/dL (32.0-36.0); MEAN CORPUSCULAR VOLUME 89.4 fL (81.0-99.0); MEAN PLATELET VOLUME 10.8 fL (7.9-10.8); MONOCYTES # (AUTO) 0.4 10^3/uL (0.0-1.0); MONOCYTES % (AUTO) 10.1 %; NEUTROPHILS # (AUTO) 2.8 10^3/uL (1.5-6.6); NEUTROPHILS % (AUTO) 71.6 %; PLT - PLATELET COUNT 123 10^3/uL (130-450); RED BLOOD COUNT 5.55 10^6/uL (4.20-5.40); RED CELL DISTRIBUTION WIDTH 13.2 % (12.0-15.0); WHITE BLOOD COUNT 3.9 x10^3/uL (4.8-10.8)
[2021-09-07 13:06] LABS: ALBUMIN 3.7 g/dL (3.2-5.5); CALCIUM 8.8 mg/dL (8.5-10.3); CREATININE 0.8 mg/dL (0.4-1.0); MAGNESIUM 2.3 mg/dL (1.7-2.8); POTASSIUM 3.8 mmol/L (3.5-5.0); TOTAL PROTEIN 7.3 g/dL (6.7-8.2)
[2021-09-07 13:19] LABS: BILIRUBIN,TOTAL 1.2 mg/dL (0.2-1.0)
[2021-09-07 14:12] LABS: B. PARAPERTUSSIS- RESP PCR PAN NOT DETECTED; B. PERTUSSIS- RESP PCR PANEL NOT DETECTED; C. PNEUMONIAE- RESP PCR PANEL NOT DETECTED; CORONAVIRUS 229E-RESP PCR NOT DETECTED; CORONAVIRUS HKU1-RESP PCR NOT DETECTED; CORONAVIRUS NL63-RESP PCR NOT DETECTED; CORONAVIRUS OC43-RESP PCR NOT DETECTED; HUMAN METAPNEUMOVIRUS NOT DETECTED; INFLUENZA A- RESP PCR PANEL NOT DETECTED; INFLUENZA B - RESP PCR PANEL NOT DETECTED; M. PNEUMONIAE- RESP PCR PANEL NOT DETECTED; PARAINFLUENZA VIRUS 1 NOT DETECTED; PARAINFLUENZA VIRUS 2 NOT DETECTED; PARAINFLUENZA VIRUS 3 NOT DETECTED; PARAINFLUENZA VIRUS 4 NOT DETECTED; RHINOVIRUS/ENTEROVIRUS NOT DETECTED; RSV- RESP PCR PANEL NOT DETECTED
[2021-09-07 14:13] LABS: SARS-CoV-2 -RESP PCR PANEL DETECTED
[2021-09-07] MEDS ORDERED: IOVERSOL 320 100 ML VIAL IVP ONE ×2 (14:37→18:05)
--- NOTE | 2021-09-07 15:41 | CT Report ---
PROCEDURE: MAXILLOFACIAL WO INDICATIONS: head injury, facial inj, back inj, anticoagulated TECHNIQUE: Noncontrast 1.5 mm thick axial images acquired from the mandible through the frontal sinuses, with co nery and sagittal reformatting. For radiation dose reduction, the following was used: automated ex posure control, adjustment of mA and/or kV according to patient size. COMPARISON: Correlation is made with the accompanying CT examinations, 08/30/2021. FINDINGS: Image quality: Excellent. Bones and teeth: Mildly displaced nasal bone fractures are seen, which are deviated to the left. No definite associated nasal septal fracture can be seen. Orbital [place] are intact. Sinus [place] show no fracture or deformity. Visualized portions of the man dible demonstrate no fractures or subluxation. Zygomatic arches are intact. Pterygoid plates are in tact. Visualized portions of the skull base and auditory canals are intact. Sinuses: There is moderate mucosal thickening within the frontal sinuses, with moderate to prominent mucosal thickening within the ethmoid air cells. There is moderate to prominent left sphenoid sinus m ucosal thickening with mild right sphenoid sinus mucosal thickening. Mild mucosal thickening is seen within the maxillary sinuses. No fluid seen within the sinuses, measures roughly 60 Hounsfield units. Soft tissues: No edema, masses, or fluid collections. No enlarged lymph nodes. No soft tissue lace rations or debris. Vascular: Visualized vascular structures appear normal in the absence of contrast. Bony vascular fo ramina and canals are intact. IMPRESSION: Mildly displaced nasal bone fractures. Hyperdense material can be seen within the paranasal sinuses, which is attributed to blood, given the history of trauma. Reviewed by: Dean Bradley MD on 09/07/2021 2:39 PM [facility] Approved by: Dean Bradley MD on 09/07/2021 2:39 PM [facility] Station ID: [id number]
--- NOTE | 2021-09-07 15:42 | CT Report ---
PROCEDURE: HEAD WO INDICATIONS: head injury, facial inj, back inj, anticoagulated TECHNIQUE: Noncontrast 4.5 mm thick angled axial sections acquired from the foramen magnum to the vertex. For r adiation dose reduction, the following was used: automated exposure control, adjustment of mA and/or kV according to patient size. COMPARISON: Correlation is made with the accompanying CT examinations, 09/07/2021. FINDINGS: Image quality: Excellent. CSF spaces: Basal cisterns are patent. No extra-axial fluid collections. Ventricles are normal in size and shape. Brain: No midline shift. No intracranial masses or hemorrhage. Disla-white matter interface is norm al. Skull and face: Nasal bone fractures are seen. Calvarium and visualized facial bones are intact, wit hout suspicious lesions. Hyperostosis frontalis is incidentally noted, which is not frankly abnormal for a female patient of this age. Sinuses: Hyperdense material can be seen within the paranasal sinuses. No significant abnormal fluid can be seen within the mastoid air cells or within the middle ear cavities. IMPRESSION: No intracranial hemorrhage is seen. No significant intracranial abnormality is seen. Nasal bone fractures are seen. Hyperdense material can be seen within the paranasal sinuses, which is attributed to blood, given the history of trauma. Reviewed by: Dean Bradley MD on 09/07/2021 2:41 PM [facility] Approved by: Dean Bradley MD on 09/07/2021 2:41 PM [facility] Station ID: [id number]
--- NOTE | 2021-09-07 15:44 | CT Report ---
PROCEDURE: CERVICAL SPINE WO INDICATIONS: head injury, facial inj, back inj, anticoagulated TECHNIQUE: Noncontrast 3 mm thick sections acquired from the skull base to the T4 level. Sagittal and coronal r eformats were then constructed. For radiation dose reduction, the following was used: automated exp osure control, adjustment of mA and/or kV according to patient size. COMPARISON: Correlation is made with the accompanying CT examinations, 09/07/2021. FINDINGS: Image quality: This study is limited by quantum mottle artifact. Bones: No fractures or dislocations. Visualized superior ribs are intact. Focal degenerative change can also be seen involving the C1-C2 interface anteriorly. Moderate disc sp yesenia narrowing is seen at C5-C6, with mild to moderate disc space narrowing at C6-C7. Endplate irregul arity and sclerosis are seen, which are worst at C5-C6. Soft tissues: Prevertebral soft tissues are normal in thickness. No paravertebral hematomas. No ap ical pneumothoraces. Mild patchy interstitial type infiltrates can be seen at the lung apices. IMPRESSION: Negative for acute fracture. Cervical spine degenerative changes are seen, which are worst inferiorly. There is partial visualization of patchy interstitial-type infiltrates at the lung apices. Reviewed by: Dean Bradley MD on 09/07/2021 2:42 PM [facility] Approved by: Dean Bradley MD on 09/07/2021 2:42 PM [facility] Station ID: [id number]
--- NOTE | 2021-09-07 15:48 | CT Report ---
PROCEDURE: CHEST W INDICATIONS: head injury, facial inj, back inj, anticoagulated CONTRAST: IV CONTRAST: Optiray 320 ml: 100 PO CONTRAST: *NO PO CONTRAST TECHNIQUE: After the administration of intravenous contrast, 1 mm axial images were acquired from the pulmonary apices through the posterior costophrenic angles. Axial 5 mm soft tissue kernel reconstructions were performed as well as 8 mm axial MIP and coronal and sagittal 5 mm reformations. For radiation dose reduction, the following was used: automated exposure control, adjustment of mA and/or kV according to patient size. COMPARISON: Prior chest CT, 09/27/2020. Correlation is also made with the accompanying CT examinatio ns, 09/07/2021. FINDINGS: Image quality: Excellent. Lungs and pleura: Mild patchy bilateral interstitial type infiltrates are seen, which are new compare d to the prior examination. These are seen most prominent peripherally. No pleural effusions or pneum othorax. Central and peripheral airways are patent and normal in caliber. Mediastinum: Heart size is normal. No pericardial effusion. No mediastinal or hilar adenopathy by size criteria. Thoracic aorta and central pulmonary arteries are normal in size. Esophagus is shavonne l in caliber. There is a small hiatal hernia. Bones and chest wall: No suspicious bony lesions. Age-appropriate degenerative changes are seen. T here is accentuated thoracic kyphosis. No vertebral body compression fractures. No axillary or sup raclavicular adenopathy by size criteria. The thyroid is normal in size and there are no incidental findings.. Abdomen: Enlarged, fatty liver is seen. A left kidney cyst can be seen. IMPRESSION: No significant posttraumatic abnormality is identified. No rib fracture or pneumothorax can be seen. Mild bilateral patchy interstitial type infiltrates are seen. Although not pathognomonic, please cons ider early COVID pneumonia. Incidental note is made of: Small hiatal hernia Enlarged, fatty liver Simple appearing left renal cyst Reviewed by: Dean Bradley MD on 09/07/2021 2:47 PM [facility] Approved by: Dean Bradley MD on 09/07/2021 2:47 PM [facility] Station ID: [id number]
--- NOTE | 2021-09-07 15:54 | CT Report ---
PROCEDURE: Abdomen/Pelvis W INDICATIONS: head injury, facial inj, back inj, anticoagulated CONTRAST: IV CONTRAST: Optiray 320 ml: 100 PO CONTRAST: *NO PO CONTRAST TECHNIQUE: After the administration of IV contrast, 5 mm thick sections acquired from the diaphragms to the symp hysis. 5 mm thick coronal and sagittal reformats were acquired. For radiation dose reduction, the f ollowing was used: automated exposure control, adjustment of mA and/or kV according to patient size. COMPARISON: Correlation is made with the accompanying CT examinations, 03/30/2021. Correlation is mad e with prior chest CT, 09/27/2020 FINDINGS: Image quality: Excellent. ABDOMEN: Lung bases: Mild bilateral patchy interstitial type infiltrates are seen, which are primarily seen pe ripherally. Heart size is normal. Solid organs: An enlarged, fatty liver can be seen. No focal liver lesions are seen. The spleen demo nstrates normal size and demonstrates no focal lesions. Gallbladder wall does not appear thickened. Biliary system is non dilated. Pancreas enhances normally. No adrenal nodules. Kidneys demonstrate normal size and enhancement, without hydronephrosis. Along the posterior aspect of the left kidney, there is a simple cyst that measures 10 Hounsfield units and 1.5 cm. Peritoneum and bowel: Bowel loops demonstrate normal wall thickness and caliber. No free fluid or a ir. Nodes and vessels: No retroperitoneal or mesenteric adenopathy by size criteria. Aorta and inferior vena cava are normal in size. Miscellaneous: A mild fat-containing periumbilical hernia is seen. PELVIS: Genitourinary: Bladder wall thickness is normal. The uterus demonstrates an unremarkable appearance for age. No adnexal masses are seen. Miscellaneous: No inguinal hernias or adenopathy. Bones: There is an L1 anterior wedge deformity seen, with 20-30% loss of height anteriorly. No poste rior fracture fragments can be seen. No involvement of the posterior elements can be seen. This fract ure cannot be seen on the prior chest CT dated 09/27/2020, although it may be off of the [id number] w of this study. No suspicious bony lesions. Age-appropriate degenerative changes are seen, which are worst involvin g the lower lumbar spine. IMPRESSION: Acute appearing L1 anterior wedge deformity, with 20-30% loss of height anteriorly. Ther e is no involvement of the posterior elements and no posterior displacement of fracture fragments can be seen. Mild infiltrates are seen at the lung bases. Please consider early COVID pneumonia. Degenerative changes are seen throughout, which are worst involving the lower lumbar spine. Incidental note is made of: Fatty liver infiltration Simple appearing left renal cyst Fat-containing peribuccal hernia Reviewed by: Dean Bradley MD on 09/07/2021 2:53 PM [place] Approved by: Dean Bradley MD on 09/07/2021 2:53 PM [facility] Station ID: [id number]
[2021-09-07] MEDS ORDERED: SODIUM CHLORIDE FLUSH 0.9% 10 ML SYRINGE IVP PRN (16:13)
[2021-09-07] MEDS ORDERED: ONDANSETRON ODT 4 MG TABLET TL PRN (16:13)
[2021-09-07] MEDS ORDERED: oxyCODONE 5 MG TABLET PO PRN (16:13)
[2021-09-07] MEDS ORDERED: ONDANSETRON 4 MG/2 ML VIAL IVP PRN (16:13)
--- NOTE | 2021-09-07 16:17 | CT Report ---
PROCEDURE: THORACIC SPINE W INDICATIONS: head injury, facial inj, back inj, anticoagulated CONTRAST: IV CONTRAST: Optiray 320 ml: 100 PO CONTRAST: *NO PO CONTRAST TECHNIQUE: After the administration of intravenous Isovue contrast, 3 mm thick sections acquired through the lev els of interest. Sagittal and coronal reformats were then constructed. For radiation dose reduction, the following was used: automated exposure control, adjustment of mA and/or kV according to patient size. COMPARISON: Correlation is made with the accompanying CT examinations, 09/07/2021. FINDINGS: Image quality: Excellent. Bones: There is acute fracture seen involving the superior endplate of the L1 vertebral body, with 2 0-30% loss of height anteriorly. No posterior displacement of fracture fragments can be seen. No invo lvement of the posterior elements can be seen. No additional fractures can be seen. Age-appropriate degenerative changes are seen. Soft tissues: There is a mild soft tissue hematoma seen adjacent to the L1 vertebral body. Incidenta l note is made of a simple exophytic left renal cyst. IMPRESSION: Acute fracture of the superior endplate of L1, with 20-30% loss of height anteriorly. Reviewed by: Dean Bradley MD on 09/07/2021 3:16 PM [facility] Approved by: Dean Bradley MD on 09/07/2021 3:16 PM [facility] Station ID: [id number]
[2021-09-07] MEDS ORDERED: LACTATED RINGERS 1,000 ML IV ONE (16:19)
--- NOTE | 2021-09-07 16:21 | CT Report ---
PROCEDURE: LUMBAR SPINE W INDICATIONS: head injury, facial inj, back inj, anticoagulated CONTRAST: IV CONTRAST: Optiray 320 ml: 100 PO CONTRAST: *NO PO CONTRAST TECHNIQUE: After the administration of intravenous Isovue contrast, 3 mm thick sections acquired from the T12 le matt to the sacrum. Sagittal and coronal reformats were constructed. For radiation dose reduction, t he following was used: automated exposure control, adjustment of mA and/or kV according to patient s ize. COMPARISON: Correlation is made with the accompanying CT examinations, 09/07/2021. FINDINGS: Image quality: Excellent. Bones: At the superior endplate of L1, there is an acute fracture seen, with 20-30% loss of height a nteriorly. No posterior displacement of fracture fragments can be seen. No fractures of the posterior elements can be seen. No additional fractures can be seen. No suspicious lytic or blastic bony lesions. No pars defects. Age-appropriate lower thoracic degenerative changes are seen. T12-L1: The disc height is well-preserved. No significant neural foraminal or central canal narrowin g can be seen. L1-L2: The disc height is well-preserved. Mild to moderate disc bulge is seen. Mild bilateral viry ral foraminal narrowing is seen. No significant central canal narrowing is seen. L2-L3: The disc height is well-preserved. Moderate disc bulge is seen at this level. A superimpo sed central disc protrusion is seen. Moderate bilateral neural foraminal narrowing is seen. Moder ate central canal narrowing is seen. L3-L4: The disc height is well-preserved. Moderate disc bulge is seen at this level. A superimpos ed central disc protrusion is seen. Moderate facet hypertrophy is seen. There is mild to moderate r ight-sided and moderate left-sided neuroforaminal narrowing seen. Moderate central canal narrowing i s seen. L4-L5: At least moderate loss of disc height is seen. Vacuum disc phenomenon is seen at this level . Moderate to prominent disc bulge is seen. There is a central disc protrusion. At least moderate f acet hypertrophy is seen. There is at least moderate bilateral neuroforaminal narrowing seen. Moderat e to prominent central canal narrowing is seen. L5-S1: At least moderate loss of disc height can be seen. Vacuum disc phenomenon is seen at this l evel. At least moderate disc bulge is seen, which is eccentric to the right. Bridging endplate osteo phytes are seen, which are worst on the right side. A superimposed central disc protrusion is seen. A t least moderate facet hypertrophy is seen. There is moderate to severe bilateral neuroforaminal narr owing seen. Moderate central canal narrowing is seen. Soft tissues: There is a mild amount of hematoma seen adjacent to the L1 vertebral body. Visualized a jimmy is normal in caliber. An exophytic simple cyst is seen along the posterior aspect of the left k idney. IMPRESSION: Acute fracture of the superior endplate of L1, with 20-30% loss of height anteriorly. Multiple levels of degenerative change are seen, which are worst inferiorly. Reviewed by: Dean Bradley MD on 09/07/2021 3:20 PM [place] Approved by: Dean Bradley MD on 09/07/2021 3:20 PM [facility] Station ID: [id number]
--- NOTE | 2021-09-07 16:22 | HISTORY & PHYSICAL EXAMINATION ---
Chief Complaint - Chief Complaint Chief Complaint: Weakness and passing out History of Present Illness - Admitted From Admitted From:: Home - History Obtained From Records Reviewed: Yes History obtained from: Patient, ER Physician, EMR Exam Limitations: Patient is a poor historian - History of Present Illness HPI Comment/Other: This is a 71-year-old female with a past medical history significant for pulmonary embolism on Xarelto who presents today due to increasing weakness and syncope. She states she was diagnosed with Covid about 1 week ago although she cannot recall exactly. Since then, she had difficulty taking care of herself. She is been incontinent of urine and stool. Her has been taking care of her but now he can no longer care for her. She states she has been passing out and has passed at least 2-3 times over the past week. Most recent was about 3 days ago when she fell in the bathroom and hit her head. She is on Xarelto for history of pulmonary embolism. She denies any headache or change in vision. She did have fevers earlier on but has been afebrile over the past couple of days. She does not feel short of breath. She has no cough. She denies any focal deficits. She does admit to lower back pain which is most prominent only when she is trying to ambulate. She has no pain at rest. She is normally independent with her ADLs. In the emergency department, she underwent an EKG which was sinus rhythm. Her troponin was normal. She was given a liter of IV fluids. Imaging revealed an acute lumbar fracture. Ambulation was attempted but the patient was too weak to ambulate without assistance. Given her syncope and weakness, medicine was consulted for admission. I discussed goals of care and she would like to be a DNR. History - Past Medical History Cardiovascular: reports: Deep vein thrombosis, Pulmonary embolism MRSA Hx?: No - Past Surgical History General: reports: Appendectomy Ortho: reports: Spine surgery HEENT: reports: Tonsil/Adenoidectomy - Family & Social History Family History Comment/Other: She reports her mother had a history of hyp ertension. Living arrangement: At home Living Situation: With spouse/s.o. Social History Notes: She lives at home with her . She does not smoke. Rarely drinks alcohol. - POLST Patient has POLST: No Meds/Allgy - Home Medications Home Medications: Ambulatory Orders Medication Instructions Recorded Confirmed Rivaroxaban [Xarelto] 20 mg PO DAILY 09/07/21 09/07/21 - Allergies Allergies/Adverse Reactions: Allergies Allergy/AdvReac Type Severity Reaction Status Date / Time Sulfa (Sulfonamide Allergy Hives Verified 09/07/21 12:25 Antibiotics) Review of Systems - Constitutional Constitutional: denies: Fever, Chills - Ears, Nose & Throat Ears, Nose & Throat: denies: Nasal discharge, Nasal congestion - Cardiovascular Cariovascular: reports: Syncope. denies: Chest pain, Lightheadedness, Exertional dyspnea, Decr. exercise tolerance - Respiratory Respiratory: denies: Cough, SOB at rest, SOB with exertion - Gastrointestinal Gastrointestinal: denies: Abdominal pain, Diarrhea, Nausea, Vomiting - Genitourinary Genitourinary: denies: Dysuria, Frequency, Urgency, Hematuria - Musculoskeletal Musculoskeletal: reports: Back pain. denies: Limited range of motion, Muscle weakness - Integumentary Integumentary: denies: Rash - Neurological Neurological: reports: General weakness. denies: Headache, Dizziness - Hematologic/Lymphatic Hematologic/Lymphatic: denies: Anemia, Bruising, Bleeding tendencies - All Other Systems All Other Systems: reports: Reviewed and negative Prior Level of Functionality: She is independent with her ADL's. Exam - Vital Signs Reviewed Vital Signs: Yes Vital Signs: Vital Signs x48h Temp Pulse Resp BP Pulse Ox 09/07/21 16:12 72 17 199/63 H 96 09/07/21 15:40 71 17 96 09/07/21 14:30 36.7 C 75 17 126/62 96 09/07/21 14:00 36.7 C 77 21 111/59 L 98 09/07/21 13:25 36.6 C 75 14 117/59 L 97 09/07/21 12:55 36.9 C 78 15 111/81 H 92 09/07/21 12:21 36.9 C 95 17 133/65 H 97 - Physical Exam General Appearance: positive: No acute distress, Alert Eyes Bilateral: positive: PERRL, Conjunctivae nml, Other (Bilateral ecchymosis noted) ENT: positive: ENT inspection nml Neck: positive: Nml inspection Respiratory: positive: No respiratory distress. negative: Wheezes, Rales Cardiovascular: positive: Regular rate & rhythm, No murmur. negative: Tachycardia Abdomen: positive: Non-tender, No distention. negative: Tenderness Back: positive: Nml inspection, Other (No lumbar spine tenderness.) Skin: positive: Warm, Dry Extremities: positive: No pedal edema Neurologic/Psychiatric: negative: Disoriented to person, Disoriented to place Conclusion/Plan - Problem List (1) Syncope Conclusion/Plan: Suspect her syncope may be related to hypovolemia and dehydration secondary to the COVID-19 infection. Her EKG reveals sinus rhythm without evidence of ischemia. Initial troponin is negative. At this point in time, we will obtain echocardiogram. Monitor on telemetry. Check orthostatics. Trend her troponin. We will hydrate her with IV lactated Ringer's. Qualifiers: Syncope type: unspecified Qualified Code(s): R55 - Syncope and collapse (2) Pneumonia due to COVID-19 virus Conclusion/Plan: Imaging does suggest pneumonia and she is positive for COVID-19. Fortunately, she is not hypoxic. I suspect her COVID-19 infection is causing her weakness and malaise. We will continue supportive care at this time. We will monitor her oxygenation status closely because if she does become hypoxic she may benefit from steroids and remdesivir. Contact precautions. (3) Compression fracture of L1 lumbar vertebra Conclusion/Plan: Imaging did reveal an L1 compression fracture. This is secondary to her falls at home. We will manage her pain with Tylenol and oxycodone as needed. PT has been consulted. Qualifiers: Encounter type: initial encounter Qualified Code(s): S32.010A - Wedge compression fracture of first lumbar vertebra, initial encounter for closed fracture (4) Facial contusion Conclusion/Plan: This is secondary to her fall. Imaging revealed nasal fracture that is minimally displaced. Qualifiers: Encounter type: initial encounter Qualified Code(s): S00.83XA - Contusion of other part of head, initial encounter (5) Generalized weakness Conclusion/Plan: This appears be secondary to her COVID-19 infection. She has no evidence of endorgan damage. We will hydrate her with IV fluids and continue supportive measures. PT has also been consulted. (6) History of pulmonary embolism Conclusion/Plan: She has a history of pulmonary embolism in 2017. She is on Xarelto at home. This will be continued. - Lab Results Lab results reviewed: Yes Fish Bones: 09/07/21 12:35 09/07/21 12:35 - Diagnostic Imaging Results Diagnostic Imaging Results: positive: Final report reviewed - EKG Results EKG Interpreted Independently: Yes EKG Findings: EKG reveals a sinus rhythm with no evidence of ischemia. Core Measures - Anticipated LOS I expect patient to be DC'd or transferred within 96 hours.: Yes - Issues Hospital Issues and Management Plan: 71-year-old female with Covid presents with weakness and syncope found of a lumbar fracture. Given her weakness syncope, she be placed in observation for work-up including echocardiogram, telemetry, IV fluids. - DVT/VTE - Prophylaxis VTE/DVT Device ordered at admit?: Yes VTE/DVT Prophylaxis med ordered at admit?: No
[2021-09-07] MEDS: LACTATED RINGERS 1,000 ML IV SCH (19:08)
[2021-09-07] MEDS: IBUPROFEN 400 MG TABLET PO PRN (19:10)
[2021-09-07] MEDS: SODIUM CHLORIDE FLUSH 0.9% 10 ML SYRINGE IVP SCH (22:02)
[2021-09-08] MEDS: IBUPROFEN 400 MG TABLET PO PRN ×4 (01:00→22:53)
[2021-09-08] MEDS: SODIUM CHLORIDE FLUSH 0.9% 10 ML SYRINGE IVP SCH ×3 (01:00→16:33)
[2021-09-08] MEDS: LACTATED RINGERS 1,000 ML IV SCH ×3 (05:05→22:54)
[2021-09-08 06:43] LABS: BASOPHILS % (AUTO) 0.4 %; EOSINOPHILS % (AUTO) 1.8 %; HCT - HEMATOCRIT 43.8 % (37.0-47.0); HGB - HEMOGLOBIN 14.5 g/dL (12.0-16.0); MEAN CORPUSCULAR HEMOGLOBIN 29.3 pg (27.0-31.0); MEAN CORPUSCULAR HGB CONC 33.1 g/dL (32.0-36.0); MEAN CORPUSCULAR VOLUME 88.5 fL (81.0-99.0); MEAN PLATELET VOLUME 11.1 fL (7.9-10.8); MONOCYTES % (AUTO) 12.9 %; NEUTROPHILS % (AUTO) 57.2 %; PLT - PLATELET COUNT 112 10^3/uL (130-450); RED BLOOD COUNT 4.95 10^6/uL (4.20-5.40); RED CELL DISTRIBUTION WIDTH 13.3 % (12.0-15.0); WHITE BLOOD COUNT 2.8 x10^3/uL (4.8-10.8)
[2021-09-08 06:45] LABS: ABNORMAL LYMPHS % (MANUAL) 0 %; BAND NEUTROPHILS % (MANUAL) 0 %
[2021-09-08 06:51] LABS: CALCIUM 8.7 mg/dL (8.5-10.3); CREATININE 0.7 mg/dL (0.4-1.0); POTASSIUM 3.8 mmol/L (3.5-5.0)
[2021-09-08 06:58] LABS: DIFFERENTIAL COMMENT MANUAL DIFFERENTIAL; EOSINOPHILS # (MANUAL) 0.1 10^3/uL (0-0.7); LYMPHOCYTES # (MANUAL) 1.1 10^3/uL (1.5-3.5); LYMPHOCYTES % (MANUAL) 40 %; MONOCYTES # (MANUAL) 0.3 10^3/uL (0.0-1.0); NEUTROPHILS # (MANUAL) 1.3 10^3/uL (1.5-6.6); PLATELET ESTIMATE, MANUAL DECREASED (<130,000) (NORMAL); PLATELET MORPHOLOGY NORMAL APPEARANCE (NORMAL); RBC MORPHOLOGY (MULTIPLE) NORMAL APPEARANCE (NORMAL); WBC MORPHOLOGY (MULTIPLE) NORMAL APPEARANCE (NORMAL)
--- NOTE | 2021-09-08 09:42 | PHARMACY PROGRESS NOTE ---
- Best Possible Medication History Admit Date and Time: 09/07/21 1613 Processed by: Nursing Medication History completed: Yes Patient Interview: Completed As the person ultimately responsible for medication therapy, providers are able to order a medication from an existing home medication list in [facility] via the "Reconcile Routine" prior to Confirmation of that medication by technician support association. Such practice is discouraged except when the physician, in their clinical judg ment, deems that a medical need exists for a medication without regard to previous use.
[2021-09-08] MEDS ORDERED: LACTATED RINGERS 1,000 ML IV ONE (10:34)
--- NOTE | 2021-09-08 11:02 | PROVIDER PROGRESS NOTE ---
Subjective - Prog Note Date Prog Note Date: 09/08/21 - Subjective Subjective: She does not really feel much improved compared to yesterday. She has been able to get to the bedside commode but cannot ambulate much further. She feels her back pain is improved. Denies any dyspnea. She still just feels weak, dizzy, lightheaded. Current Medications - Current Medications Current Medications: Active Medications Acetaminophen (Acetaminophen 325 Mg Tablet) 650 mg PO Q4HR PRN PRN Reason: Pain 1 to 4 Lactated Ringer's (Lr) 1,000 mls @ 999 mls/hr IV ONCE ONE Stop: 09/08/21 11:34 Lactated Ringer's (Lr) 1,000 mls @ 100 mls/hr IV .Q10H CARLIE Ibuprofen (Ibuprofen 400 Mg Tablet) 400 mg PO Q4HR PRN PRN Reason: Pain 1 to 4 Last Admin: 09/08/21 05:05 Dose: 400 mg Documented by: Pt Own Med( Rivaroxaban [Xarelto ] 20 Mg Tablet) 20 mg PO 1000 CARLIE Ondansetron HCl (Ondansetron Odt 4 Mg Tablet) 4 mg TL Q6HR PRN PRN Reason: Nausea / Vomiting Ondansetron HCl (Ondansetron 4 Mg/2 Ml Vial) 4 mg IVP Q6HR PRN PRN Reason: Nausea / Vomiting Oxycodone HCl (Oxycodone 5 Mg Tablet) 5 mg PO Q4HR PRN PRN Reason: Pain 5 to 7 Sodium Chloride (Sodium Chloride Flush 0.9% 10 Ml Syringe) 10 ml IVP PRN PRN PRN Reason: NEEDED PER PROVIDER ORDERS Sodium Chloride (Sodium Chloride Flush 0.9% 10 Ml Syringe) 10 ml IVP 0100,0900,1700 [facility] Last Admin: 09/08/21 09:23 Dose: Not Given Documented by: Rivaroxaban [Xarelto] 20 mg PO DAILY 09/07/21 Objective - Vital Signs/Intake & Output Reviewed Vital Signs: Yes Vital Signs: Vital Signs x48h Temp Pulse Pulse Resp BP Pulse Ox 09/08/21 10:19 36.4 C L 76 18 97 09/08/21 09:00 36.4 C L 76 18 126/63 96 09/08/21 05:00 36.2 C L 82 17 140/77 H 96 Intake & Output: Intake & Output 09/05/21 09/06/21 09/07/21 09/08/21 23:59 23:59 23:59 23:59 Intake Total 2120 1555 Output Total 750 Balance 2120 805 - Objective General Appearance: positive: No acute distress, Alert Eyes Bilateral: positive: Other (Bilateral ecchymosis) ENT: positive: ENT inspection nml Respiratory: positive: No respiratory distress, Rhonchi (Faint rhonci.) Cardiovascular: positive: Regular rate & rhythm. negative: Tachycardia Abdomen: positive: Non-tender, No distention. negative: Tenderness Skin: positive: Warm, Dry Extremities: positive: No pedal edema Neurologic/Psychiatric: positive: Motor nml. negative: Disoriented to person, Disoriented to place - Lab Results Fish Bones: 09/08/21 06:33 09/08/21 06:33 Other Labs: Lab Results x24hrs 09/08/21 09/08/21 09/07/21 Range/Units 06:33 06:33 12:35 WBC 2.8 L (4.8-10.8) x10^3/uL RBC 4.95 (4.20-5.40) 10^6/uL Hgb 14.5 (12.0-16.0) g/dL Hct 43.8 (37.0-47.0) % MCV 88.5 (81.0-99.0) fL MCH 29.3 (27.0-31.0) pg MCHC 33.1 (32.0-36.0) g/dL RDW 13.3 (12.0-15.0) % Plt Count 112 L (130-450) 10^3/uL MPV 11.1 H (7.9-10.8) fL Neut # (Auto) Not Reportable (1.5-6.6) 10^3/uL Lymph # (Auto) Not Reportable (1.5-3.5) 10^3/uL [place] # (Auto) Not Reportable (0.0-1.0) 10^3/uL Eos # (Auto) Not Reportable (0.0-0.7) 10^3/uL Baso # (Auto) Not Reportable (0.0-0.1) 10^3/uL Absolute Nucleated RBC Not Reportable x10^3/uL Total Counted 100 Band Neuts % (Manual) 0 (0 - 10) % Abnorm Lymph % (Manual) 0 % Nucleated RBC % Not Reportable /100WBC Neutrophils # (Manual) 1.3 L (1.5-6.6) 10^3/uL Lymphocytes # (Manual) 1.1 L (1.5-3.5) 10^3/uL Monocytes # (Manual) 0.3 (0.0-1.0) 10^3/uL Eosinophils # (Manual) 0.1 (0-0.7) 10^3/uL Basophils # (Manual) 0.0 (0-0.1) 10^3/uL Differential Comment MANUAL DIFFERENTIAL WBC Morphology NORMAL APPEARANCE (NORMAL) Platelet Estimate DECREASED (<130,000) (NORMAL) Platelet Morphology NORMAL APPEARANCE (NORMAL) RBC Morph Micro Appear NORMAL APPEARANCE (NORMAL) D-Dimer (200.0-255.0) ng/mL Sodium 138 (135-145) mmol/L Potassium 3.8 (3.5-5.0) mmol/L Chloride 103 (101-111) mmol/L Carbon Dioxide 27 (21-32) mmol/L Anion Gap 8.0 (6-13) BUN 13 (6-20) mg/dL Creatinine 0.7 (0.4-1.0) mg/dL Estimated GFR (MDRD) 82 L (>89) Glucose 105 H (70-100) mg/dL Calcium 8.7 (8.5-10.3) mg/dL Magnesium (1.7-2.8) mg/dL Total Bilirubin (0.2-1.0) mg/dL AST (10-42) IU/L ALT (10-60) IU/L Alkaline Phosphatase (42-121) IU/L Troponin I High Sens (2.3-14.8) ng/L Total Protein (6.7-8.2) g/dL Albumin (3.2-5.5) g/dL Globulin (2.1-4.2) g/dL Albumin/Globulin Ratio (1.0-2.2) Nasal Adenovirus (PCR) NOT DETECTED Nasal B. parapertussis DNA (PCR) NOT DETECTED Nasal Coronavir 229E PCR NOT DETECTED Nasal Coronavir HKU1 PCR NOT DETECTED Nasal Coronavir NL63 PCR NOT DETECTED Nasal Coronavir OC43 PCR NOT DETECTED Nasal Enterovir/Rhinovir PCR NOT DETECTED Nasal Influenza B PCR NOT DETECTED Nasal Influenza A PCR NOT DETECTED Nasal Parainfluen 1 PCR NOT DETECTED Nasal Parainfluen 2 PCR NOT DETECTED Nasal Parainfluen 3 PCR NOT DETECTED Nasal Parainfluen 4 PCR NOT DETECTED Nasal RSV (PCR) NOT DETECTED Nasal B.pertussis DNA PCR NOT DETECTED Nasal C.pneumoniae (PCR) NOT DETECTED Matthew Human Metapneumo PCR NOT DETECTED Nasal M.pneumoniae (PCR) NOT DETECTED Nasal SARS-CoV-2 (PCR) DETECTED A 09/07/21 09/07/21 09/07/21 Range/Units 12:35 12:35 12:35 WBC (4.8-10.8) x10^3/uL RBC (4.20-5.40) 10^6/uL Hgb (12.0-16.0) g/dL Hct (37.0-47.0) % MCV (81.0-99.0) fL MCH (27.0-31.0) pg MCHC (32.0-36.0) g/dL RDW (12.0-15.0) % Plt Count (130-450) 10^3/uL MPV (7.9-10.8) fL Neut # (Auto) (1.5-6.6) 10^3/uL Lymph # (Auto) (1.5-3.5) 10^3/uL [place] # (Auto) (0.0-1.0) 10^3/uL Eos # (Auto) (0.0-0.7) 10^3/uL Baso # (Auto) (0.0-0.1) 10^3/uL Absolute Nucleated RBC x10^3/uL Total Counted Band Neuts % (Manual) (0 - 10) % Abnorm Lymph % (Manual) % Nucleated RBC % /100WBC Neutrophils # (Manual) (1.5-6.6) 10^3/uL Lymphocytes # (Manual) (1.5-3.5) 10^3/uL Monocytes # (Manual) (0.0-1.0) 10^3/uL Eosinophils # (Manual) (0-0.7) 10^3/uL Basophils # (Manual) (0-0.1) 10^3/uL Differential Comment WBC Morphology (NORMAL) Platelet Estimate (NORMAL) Platelet Morphology (NORMAL) RBC Morph Micro Appear (NORMAL) D-Dimer 358.5 H (200.0-255.0) ng/mL Sodium 135 (135-145) mmol/L Potassium 3.8 (3.5-5.0) mmol/L Chloride 97 L (101-111) mmol/L Carbon Dioxide 29 (21-32) mmol/L Anion Gap 9.0 (6-13) BUN 13 (6-20) mg/dL Creatinine 0.8 (0.4-1.0) mg/dL Estimated GFR (MDRD) 71 L (>89) Glucose 104 H (70-100) mg/dL Calcium 8.8 (8.5-10.3) mg/dL Magnesium 2.3 (1.7-2.8) mg/dL Total Bilirubin 1.2 H (0.2-1.0) mg/dL AST 32 (10-42) IU/L ALT 32 (10-60) IU/L Alkaline Phosphatase 64 (42-121) IU/L Troponin I High Sens 4.7 (2.3-14.8) ng/L Total Protein 7.3 (6.7-8.2) g/dL Albumin 3.7 (3.2-5.5) g/dL Globulin 3.6 (2.1-4.2) g/dL Albumin/Globulin Ratio 1.0 (1.0-2.2) Nasal Adenovirus (PCR) Nasal B. parapertussis DNA (PCR) Nasal Coronavir 229E PCR Nasal Coronavir HKU1 PCR Nasal Coronavir NL63 PCR Nasal Coronavir OC43 PCR Nasal Enterovir/Rhinovir PCR Nasal Influenza B PCR Nasal Influenza A PCR Nasal Parainfluen 1 PCR Nasal Parainfluen 2 PCR Nasal Parainfluen 3 PCR Nasal Parainfluen 4 PCR Nasal RSV (PCR) Nasal B.pertussis DNA PCR Nasal C.pneumoniae (PCR) Matthew Human Metapneumo PCR Nasal M.pneumoniae (PCR) Nasal SARS-CoV-2 (PCR) 09/07/21 Range/Units 12:35 WBC 3.9 L (4.8-10.8) x10^3/uL RBC 5.55 H (4.20-5.40) 10^6/uL Hgb 16.2 H (12.0-16.0) g/dL Hct 49.6 H (37.0-47.0) % MCV 89.4 (81.0-99.0) fL MCH 29.2 (27.0-31.0) pg MCHC 32.7 (32.0-36.0) g/dL RDW 13.2 (12.0-15.0) % Plt Count 123 L (130-450) 10^3/uL MPV 10.8 (7.9-10.8) fL Neut # (Auto) 2.8 (1.5-6.6) 10^3/uL Lymph # (Auto) 0.7 L (1.5-3.5) 10^3/uL [place] # (Auto) 0.4 (0.0-1.0) 10^3/uL Eos # (Auto) 0.0 (0.0-0.7) 10^3/uL Baso # (Auto) 0.0 (0.0-0.1) 10^3/uL Absolute Nucleated RBC 0.00 x10^3/uL Total Counted Band Neuts % (Manual) (0 - 10) % Abnorm Lymph % (Manual) % Nucleated RBC % 0.0 /100WBC Neutrophils # (Manual) (1.5-6.6) 10^3/uL Lymphocytes # (Manual) (1.5-3.5) 10^3/uL Monocytes # (Manual) (0.0-1.0) 10^3/uL Eosinophils # (Manual) (0-0.7) 10^3/uL Basophils # (Manual) (0-0.1) 10^3/uL Differential Comment WBC Morphology (NORMAL) Platelet Estimate (NORMAL) Platelet Morphology (NORMAL) RBC Morph Micro Appear (NORMAL) D-Dimer (200.0-255.0) ng/mL Sodium (135-145) mmol/L Potassium (3.5-5.0) mmol/L Chloride (101-111) mmol/L Carbon Dioxide (21-32) mmol/L Anion Gap (6-13) BUN (6-20) mg/dL Creatinine (0.4-1.0) mg/dL Estimated GFR (MDRD) (>89) Glucose (70-100) mg/dL Calcium (8.5-10.3) mg/dL Magnesium (1.7-2.8) mg/dL Total Bilirubin (0.2-1.0) mg/dL AST (10-42) IU/L ALT (10-60) IU/L Alkaline Phosphatase (42-121) IU/L Troponin I High Sens (2.3-14.8) ng/L Total Protein (6.7-8.2) g/dL Albumin (3.2-5.5) g/dL Globulin (2.1-4.2) g/dL Albumin/Globulin Ratio (1.0-2.2) Nasal Adenovirus (PCR) Nasal B. parapertussis DNA (PCR) Nasal Coronavir 229E PCR Nasal Coronavir HKU1 PCR Nasal Coronavir NL63 PCR Nasal Coronavir OC43 PCR Nasal Enterovir/Rhinovir PCR Nasal Influenza B PCR Nasal Influenza A PCR Nasal Parainfluen 1 PCR Nasal Parainfluen 2 PCR Nasal Parainfluen 3 PCR Nasal Parainfluen 4 PCR Nasal RSV (PCR) Nasal B.pertussis DNA PCR Nasal C.pneumoniae (PCR) Matthew Human Metapneumo PCR Nasal M.pneumoniae (PCR) Nasal SARS-CoV-2 (PCR) ABX Reporting Has patient been on IV antibiotics over the past 48 hours?: No Assessment/Plan - Problem List (1) Syncope Impression: Suspect this is related to the orthostatic hypotension and dehydration secondary to COVID-19 infection. She has had no evidence of arrhythmia on telemetry. Preliminary echocardiogram report revealed a preserved ejection fraction and no significant valvular disease. We will continue to hydrate her with IV lactated Ringer's and check orthostatics with each shift. Qualifiers: Syncope type: unspecified Qualified Code(s): R55 - Syncope and collapse (2) Orthostatic hypotension Impression: She was noted to be orthostatic today with nearly 30 mmHg drop in her systolic. This may be contributing to her syncope is likely secondary to dehydration. We will continue to hydrate her with IV lactated Ringer's. If her orthostasis persists despite hydration we will check an a.m. cortisol. We will hold off on midodrine for the time being (3) Pneumonia due to COVID-19 virus Impression: Imaging reveals pneumonia and she has positive for COVID-19. She is not hypoxic and reports no dyspnea. I suspect her weakness, syncope, orthostasis is related to the COVID-19 infection. We will monitor her respiratory status but given she is not hypoxic, we will hold off on steroids and remdesivir. (4) Compression fracture of L1 lumbar vertebra Impression: Evident on imaging. Continue pain control with Tylenol and oxycodone as needed. Qualifiers: Encounter type: initial encounter Qualified Code(s): S32.010A - Wedge compression fracture of first lumbar vertebra, initial encounter for closed fracture (5) Facial contusion Impression: Imaging revealed a nasal fracture is minimally displaced. Qualifiers: Encounter type: initial encounter Qualified Code(s): S00.83XA - Contusion of other part of head, initial encounter (6) Generalized weakness Impression: This is secondary to COVID-19 infection and likely hypovolemia. We will contin ue to hydrate with IV fluids and continue supportive measures. Appreciate PT input. (7) History of pulmonary embolism Impression: She has a history of pulmonary embolism in 2012. We will continue home Xarelto
[2021-09-08] MEDS: RIVAROXABAN 20 MG PO SCH (11:32)
[2021-09-09] MEDS: SODIUM CHLORIDE FLUSH 0.9% 10 ML SYRINGE IVP SCH ×4 (01:16→23:37)
[2021-09-09 06:24] LABS: BASOPHILS % (AUTO) 0.3 %; EOSINOPHILS % (AUTO) 2.8 %; HCT - HEMATOCRIT 45.7 % (37.0-47.0); HGB - HEMOGLOBIN 15.2 g/dL (12.0-16.0); LYMPHOCYTES % (AUTO) 32.6 %; MEAN CORPUSCULAR HEMOGLOBIN 29.5 pg (27.0-31.0); MEAN CORPUSCULAR HGB CONC 33.3 g/dL (32.0-36.0); MEAN CORPUSCULAR VOLUME 88.6 fL (81.0-99.0); MEAN PLATELET VOLUME 10.8 fL (7.9-10.8); MONOCYTES % (AUTO) 11.5 %; NEUTROPHILS % (AUTO) 52.5 %; PLT - PLATELET COUNT 132 10^3/uL (130-450); RED BLOOD COUNT 5.16 10^6/uL (4.20-5.40); WHITE BLOOD COUNT 2.9 x10^3/uL (4.8-10.8)
[2021-09-09 06:27] LABS: ABNORMAL LYMPHS % (MANUAL) 0 %; BAND NEUTROPHILS % (MANUAL) 0 %
[2021-09-09 06:31] LABS: CALCIUM 8.8 mg/dL (8.5-10.3); CREATININE 0.7 mg/dL (0.4-1.0); POTASSIUM 3.5 mmol/L (3.5-5.0)
[2021-09-09 08:07] LABS: EOSINOPHILS # (MANUAL) 0.1 10^3/uL (0-0.7); LYMPHOCYTES # (MANUAL) 0.7 10^3/uL (1.5-3.5); LYMPHOCYTES % (MANUAL) 25 %; MONOCYTES # (MANUAL) 0.4 10^3/uL (0.0-1.0); NEUTROPHILS # (MANUAL) 1.7 10^3/uL (1.5-6.6); PLATELET ESTIMATE, MANUAL NORMAL (130-450,000) (NORMAL); PLATELET MORPHOLOGY NORMAL APPEARANCE (NORMAL); RBC MORPHOLOGY (MULTIPLE) NORMAL APPEARANCE (NORMAL)
[2021-09-09 08:08] LABS: DIFFERENTIAL COMMENT MANUAL DIFFERENTIAL
[2021-09-09] MEDS: LACTATED RINGERS 1,000 ML IV SCH ×2 (09:03→20:50)
[2021-09-09] MEDS: IBUPROFEN 400 MG TABLET PO PRN ×2 (09:03→14:26)
[2021-09-09] MEDS: RIVAROXABAN 20 MG PO SCH (09:04)
[2021-09-09] MEDS ORDERED: SODIUM CHLORIDE 0.9% 500 ML IV ONE (09:19)
--- NOTE | 2021-09-09 12:57 | PROVIDER PROGRESS NOTE ---
Assessment/Plan - Problem List (1) Syncope Qualifiers: Syncope type: unspecified Qualified Code(s): R55 - Syncope and collapse Assessment/Plan: Suspect this is related to the orthostatic hypotension and dehydration secondary to COVID-19 infection. She has had no evidence of arrhythmia on telemetry. Echocardiogram report revealed a preserved ejection fraction and no significant valvular disease. We will continue to hydrate her with IV lactated Ringer's and check orthostatics daily (2) Orthostatic hypotension Assessment/Plan: She was noted to be orthostatic today with nearly 50 mmHg drop in her systolic. This was likely contributing to her syncope, and is likely secondary to dehydration. We will continue to hydrate her with IV lactated Ringer's and will give a saline bolus today. Because her marked orthostasis persists despite hydration, will admit her to Inpatient status to continue treatment. Will check an a.m. cortisol. (3) COVID-19 virus infection Assessment/Plan: She has some mild GI symptoms and marked weakness but no respiratory complaints, despite abn CXR. White blood count is dropping daily however, today was 2.9 Remain in contact isolation. Follow CBC daily (4) Compression fracture of L1 lumbar vertebra Qualifiers: Encounter type: subsequent encounter Assessment/Plan: Will add Lidocaine patch topically (5) Nasal bone fracture Qualifiers: Encounter type: subsequent encounter Fracture type: closed Assessment/Plan: Continue with symptomatic care - Current Meds Current Meds: Current Medications Generic Name Dose Route Start Last Admin Trade Name Freq PRN Reason Stop Dose Admin Lactated Ringer's 1,000 mls @ 100 mls/hr 09/08/21 11:00 09/09/21 11:00 Lr IV 100 mls/hr .Q10H CARLIE Infusion Ibuprofen 400 mg 09/07/21 16:13 09/09/21 09:03 Ibuprofen 400 Mg Tablet PO 400 mg Q4HR PRN Administration Pain 1 to 4 Pt Own Med( 20 mg 09/08/21 10:30 09/09/21 09:04 Rivaroxaban [Xarelto PO 20 mg ] 20 Mg Tablet) 1000 CARLIE Administration Sodium Chloride 10 ml 09/07/21 17:00 09/09/21 09:04 Sodium Chloride Flush 0.9% 10 Ml Syringe IVP Not Given 0100,0900,1700 CARLIE - Lab Result Fish Bone Diagrams: 09/09/21 06:01 09/09/21 06:01 - Additional Planning My Orders: My Active Orders 09/09/21 12:07 Lidocaine Patch 5% [Lidoderm Patch] 1 patch TOP DAILY PRN Subjective - Subjective Patient Reports: Feeling Better (after Lidocaine patch ordered over lumbar area) Objective Vital Signs: Vital Signs - 24 hr 09/08/21 09/08/21 09/09/21 16:22 20:17 01:00 Temperature 37.1 C 36.7 C 36.7 C Heart Rate [ 75 80 71 Brachial] Respiratory 18 16 18 Rate Blood Pressure 160/80 H 135/68 H 153/78 H [Left Brachial artery] O2 Saturation 97 95 95 09/09/21 09/09/21 09/09/21 06:07 08:17 11:56 Temperature 37 C 36.3 C L 36.5 C Heart Rate [ 72 79 78 Brachial] Respiratory 18 18 18 Rate Blood Pressure 138/73 H 154/80 H 115/72 [Left Brachial artery] O2 Saturation 93 94 95 Oxygen O2 Source Room air I&O (Last 24 Hrs): Intake and Output Totals x24h 09/07/21 09/08/21 09/09/21 23:59 23:59 23:59 Intake Total 2120 5291.66 2648.333 Output Total 5025 2800 Balance 2120 266.66 -151.667 General: Alert, Other (Done remotely) HEENT: Mucous membr. moist/pink, Other (Ecchymosis of face) Neck: Supple Neuro: Non Focal Cardiovascular: Regular rate Respiratory: No respiratory distress - Results Results: Laboratory Results WBC 2.9 x10^3/uL (4.8-10.8) L 09/09/21 06:01 RBC 5.16 10^6/uL (4.20-5.40) 09/09/21 06:01 Hgb 15.2 g/dL (12.0-16.0) 09/09/21 06:01 Hct 45.7 % (37.0-47.0) 09/09/21 06:01 MCV 88.6 fL (81.0-99.0) 09/09/21 06:01 MCH 29.5 pg (27.0-31.0) 09/09/21 06:01 MCHC 33.3 g/dL (32.0-36.0) 09/09/21 06:01 RDW 13.0 % (12.0-15.0) 09/09/21 06:01 Plt Count 132 10^3/uL (130-450) 09/09/21 06:01 MPV 10.8 fL (7.9-10.8) 09/09/21 06:01 Neut # (Auto) Not Reportable 09/09/21 06:01 Lymph # (Auto) Not Reportable 09/09/21 06:01 [place] # (Auto) Not Reportable 09/09/21 06:01 Eos # (Auto) Not Reportable 09/09/21 06:01 Baso # (Auto) Not Reportable 09/09/21 06:01 Absolute Nucleated RBC Not Reportable 09/09/21 06:01 Total Counted 100 09/09/21 06:01 Band Neuts % (Manual) 0 % (0-10) 09/09/21 06:01 Abnorm Lymph % (Manual) 0 % 09/09/21 06:01 Nucleated RBC % Not Reportable 09/09/21 06:01 Neutrophils # (Manual) 1.7 10^3/uL (1.5-6.6) 09/09/21 06:01 Lymphocytes # (Manual) 0.7 10^3/uL (1.5-3.5) L 09/09/21 06:01 Monocytes # (Manual) 0.4 10^3/uL (0.0-1.0) 09/09/21 06:01 Eosinophils # (Manual) 0.1 10^3/uL (0-0.7) 09/09/21 06:01 Basophils # (Manual) 0.0 10^3/uL (0-0.1) 09/09/21 06:01 Differential Comment MANUAL DIFFERENTIAL 09/09/21 06:01 WBC Morphology NORMAL APPEARANCE (NORMAL) 09/08/21 06:33 Platelet Estimate NORMAL (130-450,000) (NORMAL) 09/09/21 06:01 Platelet Morphology NORMAL APPEARANCE (NORMAL) 09/09/21 06:01 RBC Morph Micro Appear NORMAL APPEARANCE (NORMAL) 09/09/21 06:01 D-Dimer 358.5 ng/mL (200.0-255.0) H 09/07/21 12:35 Sodium 137 mmol/L (135-145) 09/09/21 06:01 Potassium 3.5 mmol/L (3.5-5.0) 09/09/21 06:01 Chloride 101 mmol/L (101-111) 09/09/21 06:01 Carbon Dioxide 26 mmol/L (21-32) 09/09/21 06:01 Anion Gap 10.0 (6-13) 09/09/21 06:01 BUN 10 mg/dL (6-20) 09/09/21 06:01 Creatinine 0.7 mg/dL (0.4-1.0) 09/09/21 06:01 Estimated GFR (MDRD) 82 (>89) L 09/09/21 06:01 Glucose 120 mg/dL (70-100) H 09/09/21 06:01 Calcium 8.8 mg/dL (8.5-10.3) 09/09/21 06:01 Magnesium 2.3 mg/dL (1.7-2.8) 09/07/21 12:35 Total Bilirubin 1.2 mg/dL (0.2-1.0) H 09/07/21 12:35 AST 32 IU/L (10-42) 09/07/21 12:35 ALT 32 IU/L (10-60) 09/07/21 12:35 Alkaline Phosphatase 64 IU/L (42-121) 09/07/21 12:35 Troponin I High Sens 4.7 ng/L (2.3-14.8) 09/07/21 12:35 Total Protein 7.3 g/dL (6.7-8.2) 09/07/21 12:35 Albumin 3.7 g/dL (3.2-5.5) 09/07/21 12:35 Globulin 3.6 g/dL (2.1-4.2) 09/07/21 12:35 Albumin/Globulin Ratio 1.0 (1.0-2.2) 09/07/21 12:35 Nasal Adenovirus (PCR) NOT DETECTED 09/07/21 12:35 Nasal B. parapertussis DNA (PCR) NOT DETECTED 09/07/21 12:35 Nasal Coronavir 229E PCR NOT DETECTED 09/07/21 12:35 Nasal Coronavir HKU1 PCR NOT DETECTED 09/07/21 12:35 Nasal Coronavir NL63 PCR NOT DETECTED 09/07/21 12:35 Nasal Coronavir OC43 PCR NOT DETECTED 09/07/21 12:35 Nasal Enterovir/Rhinovir PCR NOT DETECTED 09/07/21 12:35 Nasal Influenza B PCR NOT DETECTED 09/07/21 12:35 Nasal Influenza A PCR NOT DETECTED 09/07/21 12:35 Nasal Parainfluen 1 PCR NOT DETECTED 09/07/21 12:35 Nasal Parainfluen 2 PCR NOT DETECTED 09/07/21 12:35 Nasal Parainfluen 3 PCR NOT DETECTED 09/07/21 12:35 Nasal Parainfluen 4 PCR NOT DETECTED 09/07/21 12:35 Nasal RSV (PCR) NOT DETECTED 09/07/21 12:35 Nasal B.pertussis DNA PCR NOT DETECTED 09/07/21 12:35 Nasal C.pneumoniae (PCR) NOT DETECTED 09/07/21 12:35 Matthew Human Metapneumo PCR NOT DETECTED 09/07/21 12:35 Nasal M.pneumoniae (PCR) NOT DETECTED 09/07/21 12:35 Nasal SARS-CoV-2 (PCR) DETECTED A 09/07/21 12:35
[2021-09-09] MEDS: LIDOCAINE PATCH 5% TOP PRN (14:26)
[2021-09-10] MEDS: LACTATED RINGERS 1,000 ML IV SCH ×2 (05:33→16:32)
[2021-09-10] MEDS: IBUPROFEN 400 MG TABLET PO PRN ×2 (07:41→22:32)
[2021-09-10 08:17] LABS: CALCIUM 9.3 mg/dL (8.5-10.3); CREATININE 0.7 mg/dL (0.4-1.0); POTASSIUM 3.5 mmol/L (3.5-5.0)
[2021-09-10 08:39] LABS: BASOPHILS % (AUTO) 0.2 %; EOSINOPHILS # (AUTO) 0.1 10^3/uL (0.0-0.7); EOSINOPHILS % (AUTO) 2.6 %; HGB - HEMOGLOBIN 15.8 g/dL (12.0-16.0); LYMPHOCYTES % (AUTO) 22.7 %; MEAN CORPUSCULAR HEMOGLOBIN 29.2 pg (27.0-31.0); MEAN CORPUSCULAR HGB CONC 32.9 g/dL (32.0-36.0); MEAN CORPUSCULAR VOLUME 88.7 fL (81.0-99.0); MEAN PLATELET VOLUME 11.1 fL (7.9-10.8); MONOCYTES # (AUTO) 0.4 10^3/uL (0.0-1.0); MONOCYTES % (AUTO) 8.6 %; NEUTROPHILS # (AUTO) 2.7 10^3/uL (1.5-6.6); NEUTROPHILS % (AUTO) 65.2 %; PLT - PLATELET COUNT 156 10^3/uL (130-450); RED BLOOD COUNT 5.41 10^6/uL (4.20-5.40); RED CELL DISTRIBUTION WIDTH 13.2 % (12.0-15.0); WHITE BLOOD COUNT 4.2 x10^3/uL (4.8-10.8)
[2021-09-10] MEDS: SODIUM CHLORIDE FLUSH 0.9% 10 ML SYRINGE IVP SCH ×2 (09:36→16:04)
[2021-09-10] MEDS: RIVAROXABAN 20 MG PO SCH (10:25)
--- NOTE | 2021-09-10 13:08 | PROVIDER PROGRESS NOTE ---
Assessment/Plan - Problem List (1) Syncope Qualifiers: Syncope type: unspecified Qualified Code(s): R55 - Syncope and collapse Assessment/Plan: Suspect this was related to the marked orthostatic hypotension she had and dehydration secondary to COVID-19 infection. She has had no evidence of arrhythmia on telemetry. Echocardiogram report revealed a preserved ejection fraction and no significant valvular disease. We will continue to hydrate her with IV lactated Ringer's an additional day and check orthostatics daily Also, PT is seeing her, to determine if safe to DCh home when ready (2) Orthostatic hypotension Assessment/Plan: She was noted to be severely orthostatic since admission with nearly 50 mmHg drop in her systolic BP. This was likely the cause of her syncope, and was likely secondary to dehydration. The orthostatics have improved today. Her a.m. cortisol was normal. We will continue to hydrate her with IV lactated Ringer's an additional day. Possible DCh home tomorrow, if her respiratory status does not in fact worsen (as it did this morning, with her oxygen saturation dropping to 90%), due to COVID pneumonia. (3) COVID-19 virus infection Assessment/Plan: She has some mild GI symptoms and marked weakness but no respiratory complaints, despite her abnormal CXR. White blood count is very low however, for several days now. She is not a candidate for Remdesivir or Decadron, by criteria. Remain in contact isolation. Follow CBC daily Possible DCh home tomorrow, if her respiratory status does not in fact worsen (as it did this morning, with her oxygen saturation dropping to 90%), due to COVID pneumonia. (4) Compression fracture of L1 lumbar vertebra Qualifiers: Encounter type: subsequent encounter Assessment/Plan: We added a Lidocaine patch topically, which she reports helped. She is starting to participate with PT. (5) Nasal bone fracture Qualifiers: Encounter type: subsequent encounter Fracture type: closed Assessment/Plan: Continue with symptomatic care - Current Meds Current Meds: Current Medications Generic Name Dose Route Start Last Admin Trade Name Freq PRN Reason Stop Dose Admin Lactated Ringer's 1,000 mls @ 100 mls/hr 09/08/21 11:00 09/10/21 05:33 Lr IV 100 mls/hr .Q10H CARLIE Administration Ibuprofen 400 mg 09/07/21 16:13 09/10/21 07:41 Ibuprofen 400 Mg Tablet PO 400 mg Q4HR PRN Administration Pain 1 to 4 Lidocaine 1 patch 09/09/21 12:07 09/09/21 14:26 Lidocaine Patch 5% TOP 1 patch DAILY PRN Administration PAIN Pt Own Med( 20 mg 09/08/21 10:30 09/10/21 10:25 Rivaroxaban [Xarelto PO 20 mg ] 20 Mg Tablet) 1000 CARLIE Administration Sodium Chloride 10 ml 09/07/21 17:00 09/10/21 09:36 Sodium Chloride Flush 0.9% 10 Ml Syringe IVP Not Given 0100,0900,1700 CARLIE - Lab Result Fish Bone Diagrams: 09/10/21 07:54 09/10/21 07:54 - Additional Planning My Orders: My Active Orders 09/09/21 12:07 Lidocaine Patch 5% [Lidoderm Patch] 1 patch TOP DAILY PRN Subjective - Subjective Patient Reports: Resting Comfortably (Has more energy today) Objective Vital Signs: Vital Signs - 24 hr 09/09/21 09/09/21 09/09/21 15:47 20:43 23:28 Temperature 37.1 C 37 C 36.5 C Heart Rate [ 76 66 67 Brachial] Respiratory 17 18 18 Rate Blood Pressure 150/82 H 147/71 H 154/67 H [Left Brachial artery] O2 Saturation 93 95 94 09/10/21 09/10/21 09/10/21 05:09 05:23 07:31 Temperature 36.5 C 36.3 C L Heart Rate [ 81 67 Brachial] Respiratory 18 18 Rate Blood Pressure 174/82 H 149/74 H 140/77 H [Left Brachial artery] O2 Saturation 90 L 95 09/10/21 11:17 Temperature 37.0 C Heart Rate [ 77 Brachial] Respiratory 18 Rate Blood Pressure 132/73 H [Left Brachial artery] O2 Saturation 95 Oxygen O2 Source Room air I&O (Last 24 Hrs): Intake and Output Totals x24h 09/08/21 09/09/21 09/10/21 23:59 23:59 23:59 Intake Total 5291.66 4510.000 2201.667 Output Total 5025 3250 1800 Balance 266.66 1260.000 401.667 General: Alert ((Visit done remotely)) HEENT: Mucous membr. moist/pink, Other (Ecchymosis of fac e) Neck: Supple Neuro: Non Focal Cardiovascular: Regular rate Respiratory: No respiratory distress (Able to lay supine w/out distress) Abdomen: Soft Extremities: No edema - Results Results: Laboratory Results WBC 4.2 x10^3/uL (4.8-10.8) L 09/10/21 07:54 RBC 5.41 10^6/uL (4.20-5.40) H 09/10/21 07:54 Hgb 15.8 g/dL (12.0-16.0) 09/10/21 07:54 Hct 48.0 % (37.0-47.0) H 09/10/21 07:54 MCV 88.7 fL (81.0-99.0) 09/10/21 07:54 MCH 29.2 pg (27.0-31.0) 09/10/21 07:54 MCHC 32.9 g/dL (32.0-36.0) 09/10/21 07:54 RDW 13.2 % (12.0-15.0) 09/10/21 07:54 Plt Count 156 10^3/uL (130-450) 09/10/21 07:54 MPV 11.1 fL (7.9-10.8) H 09/10/21 07:54 Neut # (Auto) 2.7 10^3/uL (1.5-6.6) 09/10/21 07:54 Lymph # (Auto) 1.0 10^3/uL (1.5-3.5) L 09/10/21 07:54 [place] # (Auto) 0.4 10^3/uL (0.0-1.0) 09/10/21 07:54 Eos # (Auto) 0.1 10^3/uL (0.0-0.7) 09/10/21 07:54 Baso # (Auto) 0.0 10^3/uL (0.0-0.1) 09/10/21 07:54 Absolute Nucleated RBC 0.00 x10^3/uL 09/10/21 07:54 Total Counted 100 09/09/21 06:01 Band Neuts % (Manual) 0 % (0-10) 09/09/21 06:01 Abnorm Lymph % (Manual) 0 % 09/09/21 06:01 Nucleated RBC % 0.0 /100WBC 09/10/21 07:54 Neutrophils # (Manual) 1.7 10^3/uL (1.5-6.6) 09/09/21 06:01 Lymphocytes # (Manual) 0.7 10^3/uL (1.5-3.5) L 09/09/21 06:01 Monocytes # (Manual) 0.4 10^3/uL (0.0-1.0) 09/09/21 06:01 Eosinophils # (Manual) 0.1 10^3/uL (0-0.7) 09/09/21 06:01 Basophils # (Manual) 0.0 10^3/uL (0-0.1) 09/09/21 06:01 Differential Comment MANUAL DIFFERENTIAL 09/09/21 06:01 WBC Morphology NORMAL APPEARANCE (NORMAL) 09/08/21 06:33 Platelet Estimate NORMAL (130-450,000) (NORMAL) 09/09/21 06:01 Platelet Morphology NORMAL APPEARANCE (NORMAL) 09/09/21 06:01 RBC Morph Micro Appear NORMAL APPEARANCE (NORMAL) 09/09/21 06:01 D-Dimer 358.5 ng/mL (200.0-255.0) H 09/07/21 12:35 Sodium 139 mmol/L (135-145) 09/10/21 07:54 Potassium 3.5 mmol/L (3.5-5.0) 09/10/21 07:54 Chloride 101 mmol/L (101-111) 09/10/21 07:54 Carbon Dioxide 27 mmol/L (21-32) 09/10/21 07:54 Anion Gap 11.0 (6-13) 09/10/21 07:54 BUN 9 mg/dL (6-20) 09/10/21 07:54 Creatinine 0.7 mg/dL (0.4-1.0) 09/10/21 07:54 Estimated GFR (MDRD) 82 (>89) L 09/10/21 07:54 Glucose 113 mg/dL (70-100) H 09/10/21 07:54 Calcium 9.3 mg/dL (8.5-10.3) 09/10/21 07:54 Magnesium 2.3 mg/dL (1.7-2.8) 09/07/21 12:35 Total Bilirubin 1.2 mg/dL (0.2-1.0) H 09/07/21 12:35 AST 32 IU/L (10-42) 09/07/21 12:35 ALT 32 IU/L (10-60) 09/07/21 12:35 Alkaline Phosphatase 64 IU/L (42-121) 09/07/21 12:35 Troponin I High Sens 4.7 ng/L (2.3-14.8) 09/07/21 12:35 Total Protein 7.3 g/dL (6.7-8.2) 09/07/21 12:35 Albumin 3.7 g/dL (3.2-5.5) 09/07/21 12:35 Globulin 3.6 g/dL (2.1-4.2) 09/07/21 12:35 Albumin/Globulin Ratio 1.0 (1.0-2.2) 09/07/21 12:35 Nasal Adenovirus (PCR) NOT DETECTED 09/07/21 12:35 Nasal B. parapertussis DNA (PCR) NOT DETECTED 09/07/21 12:35 Nasal Coronavir 229E PCR NOT DETECTED 09/07/21 12:35 Nasal Coronavir HKU1 PCR NOT DETECTED 09/07/21 12:35 Nasal Coronavir NL63 PCR NOT DETECTED 09/07/21 12:35 Nasal Coronavir OC43 PCR NOT DETECTED 09/07/21 12:35 Nasal Enterovir/Rhinovir PCR NOT DETECTED 09/07/21 12:35 Nasal Influenza B PCR NOT DETECTED 09/07/21 12:35 Nasal Influenza A PCR NOT DETECTED 09/07/21 12:35 Nasal Parainfluen 1 PCR NOT DETECTED 09/07/21 12:35 Nasal Parainfluen 2 PCR NOT DETECTED 09/07/21 12:35 Nasal Parainfluen 3 PCR NOT DETECTED 09/07/21 12:35 Nasal Parainfluen 4 PCR NOT DETECTED 09/07/21 12:35 Nasal RSV (PCR) NOT DETECTED 09/07/21 12:35 Nasal B.pertussis DNA PCR NOT DETECTED 09/07/21 12:35 Nasal C.pneumoniae (PCR) NOT DETECTED 09/07/21 12:35 Matthew Human Metapneumo PCR NOT DETECTED 09/07/21 12:35 Nasal M.pneumoniae (PCR) NOT DETECTED 09/07/21 12:35 Nasal SARS-CoV-2 (PCR) DETECTED A 09/07/21 12:35
[2021-09-10] MEDS: ACETAMINOPHEN 325 MG TABLET PO PRN (16:32)
[2021-09-10] MEDS: LIDOCAINE PATCH 5% TOP PRN (16:32)
[2021-09-11] MEDS: SODIUM CHLORIDE FLUSH 0.9% 10 ML SYRINGE IVP SCH ×2 (01:01→10:57)
[2021-09-11] MEDS: LACTATED RINGERS 1,000 ML IV SCH (02:24)
[2021-09-11 05:51] LABS: BASOPHILS % (AUTO) 0.6 %; EOSINOPHILS # (AUTO) 0.1 10^3/uL (0.0-0.7); EOSINOPHILS % (AUTO) 3.9 %; HCT - HEMATOCRIT 44.7 % (37.0-47.0); HGB - HEMOGLOBIN 14.6 g/dL (12.0-16.0); LYMPHOCYTES # (AUTO) 1.3 10^3/uL (1.5-3.5); MEAN CORPUSCULAR HEMOGLOBIN 28.9 pg (27.0-31.0); MEAN CORPUSCULAR HGB CONC 32.7 g/dL (32.0-36.0); MEAN CORPUSCULAR VOLUME 88.5 fL (81.0-99.0); MONOCYTES # (AUTO) 0.4 10^3/uL (0.0-1.0); MONOCYTES % (AUTO) 9.8 %; NEUTROPHILS # (AUTO) 1.8 10^3/uL (1.5-6.6); NEUTROPHILS % (AUTO) 48.9 %; PLT - PLATELET COUNT 178 10^3/uL (130-450); RED BLOOD COUNT 5.05 10^6/uL (4.20-5.40); RED CELL DISTRIBUTION WIDTH 13.1 % (12.0-15.0); WHITE BLOOD COUNT 3.6 x10^3/uL (4.8-10.8)
[2021-09-11 05:54] LABS: CREATININE 0.8 mg/dL (0.4-1.0); POTASSIUM 4.2 mmol/L (3.5-5.0)
[2021-09-11] MEDS ORDERED: LACTATED RINGERS 1,000 ML IV SCH (08:09)
--- NOTE | 2021-09-11 08:14 | Discharge Plan ---
Discharge Plan Problem Reviewed?: Yes Disposition: Home, Self Care Condition: Stable Prescriptions: Lidocaine Patch 5% [Lidoderm Patch] 1 patch TOP DAILY PRN #10 patch PRN Reason: Pain Diet: Regular Activity Restrictions: Activity as Tolerated Shower Restrictions: No Driving Restrictions: No Assistance Devices: Walker Instruction Topics: Flu and Cold: Nutrition, Prevention and Treatment Tips Health Concerns: You were hospitalized after you fainted and fell, sustained a nasal fracture and lumbar vertebrae compression fracture. We found that you were extremely dehydrated, since your blood pressure dropped significantly when you were in an upright, standing position. This would also explain your fatigue. You needed several days of IV fluids to correct this. Despite testing positive for COVID you luckily had no respiratory symptoms. You are being discharged today with recommendations to follow the CDC COVID guidelines regarding isolation (see separate sheet). Resume all your usual prehospital medications. A new prescription for a Lidocaine patch was ordered (and sent electronically to [facility]), if you want to use it, placed over your lumbar spine. Plan of Treatment: As above. Care Goals: Improvement in symptoms and stabilization are the goals. Assessment: The patient understands and is agreeable with the plan. No Smoking: If you smoke, Please STOP! Call for help.
[2021-09-11] MEDS: IBUPROFEN 400 MG TABLET PO PRN (08:28)
[2021-09-11] MEDS: ACETAMINOPHEN 325 MG TABLET PO PRN (08:28)
[2021-09-11 08:29] VITALS: BP 147/75
--- NOTE | 2021-09-11 09:31 | DISCHARGE SUMMARY ---
Discharge Summary Admit Date: 09/07/21 Discharge Date: 09/11/21 Discharging Provider: Dr Ifrah Rios Primary Care Provider: Kassandra Reddy NP Code Status: Do Not Attempt Resuscitation Condition at Discharge: Stable Discharge Disposition: 01 Home, Self Care - DIAGNOSES Admission Diagnoses: (1) Syncope (2) Pneumonia due to COVID-19 virus (3) Compression fracture of L1 lumbar vertebra (4) Facial contusion (5) Generalized weakness (6) History of pulmonary embolism - HPI History of Present Illness: From the admission H&P of Dr Thomas Ocasio: This is a 71-year-old female with a past medical history significant for pulmonary embolism on Xarelto who presents today due to increasing weakness and syncope. She states she was diagnosed with Covid about 1 week ago although she cannot recall exactly. Since then, she had difficulty taking care of herself. She is been incontinent of urine and stool. Her has been taking care of her but now he can no longer care for her. She states she has been passing out and has passed at least 2-3 times over the past week. Most recent was about 3 days ago when she fell in the bathroom and hit her head. She is on Xarelto for history of pulmonary embolism. She denies any headache or change in vision. She did have fevers earlier on but has been afebrile over the past couple of days. She does not feel short of breath. She has no cough. She denies any focal deficits. She does admit to lower back pain which is most prominent only when she is trying to ambulate. She has no pain at rest. She is normally independent with her ADLs. In the emergency department, she underwent an EKG which was sinus rhythm. Her troponin was normal. She was given a liter of IV fluids. Imaging revealed an acute lumbar fracture. Ambulation was attempted but the patient was too weak to ambulate without assistance. Given her syncope and weakness, medicine was consulted for admission. I discussed goals of care and she would like to be a DNR. - HOSPITAL COURSE Hospital Course: (1) Syncope Suspect this was related to the marked orthostatic hypotension she had and dehydration secondary to COVID-19 infection. She had no evidence of arrhythmia on telemetry. Troponins were neg. An Echocardiogram revealed a preserved ejection fraction and no significant valvular disease. (2) Orthostatic hypotension She was noted to be severely orthostatic with a nearly 50 mmHg drop in her systolic BP. This was likely the cause of her syncope, and was likely secondary to dehydration. Her a.m. cortisol was normal. She received iv Lactated Ringers solution for rehydration. It was 4 days before her orthostatic vital signs impro genny to be normal. She was seen by PT and needed a walker for assistance with ambulation after DCh. (3) COVID-19 virus infection She has some mild GI symptoms and marked weakness but no respiratory complaints, despite her abnormal CXR and neutropenia. She was stable breathing room air and was not a candidate for Remdesivir or Decadron, by criteria. Per guidelines, she should remain in contact isolation for 1 more day. (4) Compression fracture of L1 lumbar vertebra She requested Motrin and Tylenol and did not want narcotics. We added a Lidocain e patch topically, which helped and was ordered for use prn after discharge. She was seen by PT and needed a walker for assistance with ambulation after DCh. (5) Nasal bone fracture Continue with symptomatic care (6) Generalized weakness This was significantly improved with iv hydration for 4 days. (7) History of pulmonary embolism We kept her on her home dose of anti-coagulant while here. - ALLERGIES Allergies/Adverse Reactions: Allergies Allergy/AdvReac Type Severity Reaction Status Date / Time Sulfa (Sulfonamide Allergy Hives Verified 09/07/21 12:25 Antibiotics) - MEDICATIONS Home Medications: Ambulatory Orders Medication Instructions Recorded Confirmed Rivaroxaban [Xarelto] 20 mg PO DAILY 09/07/21 09/07/21 Acetaminophen [Tylenol] 650 mg PO Q4HR PRN tablet 09/11/21 Ibuprofen [Motrin] 400 mg PO Q4HR PRN tablet 09/11/21 Lidocaine Patch 5% [Lidoderm Patch] 1 patch TOP DAILY PRN #10 patch 09/11/21 - PHYSICAL EXAM AT DISCHARGE General Appearance: positive: No acute distress, Alert Eyes Bilateral: positive: Conjunctivae nml, Other (Bilateral karen-orbital eccymoses.) ENT: positive: No signs of dehydration Neck: positive: Nml inspection, No JVD Respiratory: positive: No respiratory distress Cardiovascular: positive: Regular rate & rhythm, No murmur Abdomen: positive: Non-tender, No distention Skin: positive: Warm, Dry Neurologic/Psychiatric: positive: Oriented x3 (Non-focal) - LABS Result Diagrams: 09/11/21 05:23 09/11/21 05:23 - DIAGNOSTIC IMAGING Diagnostic Imaging Results: Final report reviewed - FOLLOW UP Follow Up: See PCP for routine hospital follow-up. - TIME SPENT Time Spent in Discharge (Minutes): 45
[2021-09-11] MEDS: RIVAROXABAN 20 MG PO SCH (10:10)
== END 2021-09-11 12:22 | disposition home or self-care (01) | DRG 312 ==
LOC: EDUNIT# → ED 12:12 → MS2 16:13 → OBSVTOIN 09-09 09:17
PROVIDERS: ADMIT Internal Medicine; ATTEND Internal Medicine
DX: I95.1 Orthostatic hypotension (principal); I26.99 Other pulmonary embolism without acute cor pulmonale; U07.1 COVID-19; J12.82 Pneumonia due to coronavirus disease 2019; S32.010A Wedge compression fracture of first lumbar vertebra, initial encounter for closed fracture; S02.2XXA Fracture of nasal bones, initial encounter for closed fracture; E86.0 Dehydration; W19.XXXA Unspecified fall, initial encounter; Y92.009 Unspecified place in unspecified non-institutional (private) residence as the place of occurrence of the external cause; R53.1 Weakness; Z66 Do not resuscitate; Z91.81 History of falling; Z79.01 Long term (current) use of anticoagulants; Z86.718 Personal history of other venous thrombosis and embolism
CPT/HCPCS: 36415; 70450; 70486; 71260; 72125; 72129; 72132; 74177; 80048; 80053; 83735; 84484; 85025; 85379; 87631; 90471; 90715; 93005; 93306; 96361; 96374; 97116; 97162; 99284; 99285; A9270; G0378; J1170; J7120; Q9967; 0202U

== ENCOUNTER 2022-09-08 08:00 | Outpatient (CLI) | payer OTHER ==
--- NOTE | 2022-09-09 17:16 | XRAY Report ---
PROCEDURE: Chest 2 View X-Ray INDICATIONS: COUGH TECHNIQUE: 2 views of the chest were acquired. COMPARISON: Chest x-ray 11/07/2020 FINDINGS: Surgical changes and devices: None. Lungs and pleura: No pleural effusions or pneumothorax. Lungs are clear. Mediastinum: Mediastinal contours are normal. Heart size is normal. Bones and chest wall: No suspicious bony abnormalities. Soft tissues appear unremarkable. IMPRESSION: No acute pulmonary process. Reviewed by: Adelaida Giles MD on 09/09/2022 5:14 PM PST Approved by: Adelaida Giles MD on 09/09/2022 5:14 PM PST Station ID: [id number]
== END 2022-09-08 23:59 | disposition home or self-care (01) ==
LOC: DI.S 08:00
PROVIDERS: ATTEND Registered Nurse
DX: R05.9 Cough, unspecified (principal)

== ENCOUNTER 2024-02-19 14:55 | Emergency (ER) | payer OTHER ==
[2024-02-19 15:09] VITALS: O2SAT 97
--- NOTE | 2024-02-19 20:10 | ED Physician Documentation ---
PD HPI LOWER EXT INJURY - Stated complaint Stated Complaint: SWOLLEN LT LEG,SORE,HOT - Chief complaint Chief Complaint: Ext Problem - History obtained from History obtained from: Patient - Additional information Additional information: 73-year-old female presents for evaluation of left lower extremity pain and swelling. First noticed symptoms last night, came today because she was concerned she may have a blood clot. Reports remote history of DVT 8 years ago, previously on Xarelto. She states that she thinks that the last blood clot was due to an international flight, denies recent surgeries, long trips, other changes. Not currently anticoagulated. Denies chest pain, shortness of breath, syncope, other complaints. Review of Systems Constitutional: denies: Fever, Chills Cardiac: reports: Calf pain. denies: Chest pain / pressure, Palpitations Respiratory: denies: Dyspnea, Cough, Wheezing GI: denies: Abdominal Pain, Nausea, Vomiting : denies: Dysuria, Frequency, Hesitancy Musculoskeletal: reports: Extremity pain, Extremity swelling. denies: Neck pain, Back pain, Joint pain PD PAST MEDICAL HISTORY - Past Medical History Cardiovascular: Deep vein thrombosis, Pulmonary embolism Other Past Medical History: DVT/PE - Past Surgical History Past Surgical History: Yes General: Appendectomy Ortho: Spine surgery HEENT: Tonsil/Adenoidectomy - Present Medications Home Medications: Ambulatory Orders Medication Instructions Recorded Confirmed Rivaroxaban [Xarelto] 20 mg PO DAILY 09/07/21 09/07/21 Acetaminophen [Tylenol] 650 mg PO Q4HR PRN tablet 09/11/21 Ibuprofen [Motrin] 400 mg PO Q4HR PRN tablet 09/11/21 Lidocaine Patch 5% [Lidoderm Patch] 1 patch TOP DAILY PRN #10 patch 09/11/21 Rivaroxaban [Xarelto] 15 mg PO BID #42 tablet 02/19/24 Rivaroxaban [Xarelto] 20 mg PO DAILY #30 tablet 02/19/24 - Allergies Allergies/Adverse Reactions: Allergies Allergy/AdvReac Type Severity Reaction Status Date / Time Sulfa (Sulfonamide Allergy Hives Verified 09/07/21 12:25 Antibiotics) - Social History Does the pt smoke?: No Smoking Status: Never smoker Does the pt drink ETOH?: No Does the pt have substance abuse?: No - Immunizations Immunizations are current?: No - POLST Patient has POLST: No PD ED PE NORMAL - Vitals Vital signs reviewed: Yes - General General: Alert and oriented X 3, No acute distress, Well developed/nourished - HEENT HEENT: Atraumatic - Neck Neck: Supple, no meningeal sign - Cardiac Cardiac: RRR, Strong equal pulses - Abdomen Abdomen: Soft, Non tender, Non distended - Derm Derm: Normal color, Warm and dry, No rash - Extremities Extremities: No deformity, No tenderness to palpate, Normal ROM s pain, Other (Left lower extremity very slightly larger in size than right lower extremity from knee down) - Neuro Neuro: Alert and oriented X 3, edge inker heels 2-12 intact, No motor deficit, Normal speech - Psych Psych: Normal mood, Normal affect Results - Vitals Vitals: Vital Signs - 24 hr 02/19/24 02/19/24 14:59 21:06 Temperature 37.1 C Heart Rate 106 H 88 Respiratory 18 16 Rate Blood Pressure 140/78 H 138/74 H O2 Saturation 97 97 Oxygen O2 Source Room air - Labs Labs: Laboratory Tests 02/19/24 02/19/24 02/19/24 20:27 20:27 20:27 WBC 6.3 RBC 5.21 Hgb 14.9 Hct 47.6 H MCV 91.4 MCH 28.6 MCHC 31.3 L RDW 13.7 Plt Count 173 MPV 10.2 Neut # (Auto) 3.7 Lymph # (Auto) 1.5 [place] # (Auto) 0.9 Eos # (Auto) 0.2 Baso # (Auto) 0.0 Absolute Nucleated RBC 0.00 Nucleated RBC % 0.0 PT 12.0 INR 1.1 Sodium 136 Potassium 4.0 Chloride 102 Carbon Dioxide 27 Anion Gap 7.0 BUN 12 Creatinine 0.9 Estimated GFR (MDRD) 61 L Glucose 97 Calcium 10.1 Total Bilirubin 0.7 AST 12 ALT 11 Alkaline Phosphatase 72 Total Protein 6.8 Albumin 4.2 Globulin 2.6 Albumin/Globulin Ratio 1.6 PD Medical Decision Making - ED course Complexity details: reviewed results, re-evaluated patient, considered differential, d/w patient ED course: Left lower extremity pain and swelling with history of DVT. Ultrasound confirms presence of distal DVT. Laboratory work is reviewed, unremarkable. Patient requested to be placed on Xarelto since she can take it once daily. I informed patient that for the first 21 days due to presence of blood clot patient would need to take twice daily Xarelto, but could subsequently go to once daily after the first 21 days are over. Currently no Xarelto in the emergency department, she was given a shot of Lovenox since pharmacies are currently closed, she may start taking Xarelto first thing tomorrow morning. PCP follow-up advised. Departure - Departure Disposition: 01 Home, Self Care Clinical Impression: Deep vein thrombosis Qualifiers: DVT location: lower extremity Affected thrombotic vein of extremity: peroneal Chronicity: acute Laterality: left Qualified Code(s): I82.452 - Acute embolism and thrombosis of left peroneal vein Condition: Stable Instructions: DVT Dc Prescriptions: Rivaroxaban [Xarelto] 15 mg PO BID #42 tablet Rivaroxaban [Xarelto] 20 mg PO DAILY #30 tablet Comments: For the first 21 days you will need to take 15mg twice daily. After day 21 you may decrease to 20mg by mouth daily Forms: PCP List Discharge Date/Time: 02/19/24 21:08
--- NOTE | 2024-02-19 20:12 | Ultrasound Report ---
PROCEDURE: Duplex Venous Limited INDICATIONS: LLE pain TECHNIQUE: Real-time imaging, as well as color and pulse Doppler interrogation, were performed of the lower extr emity deep veins from the inguinal ligament to the popliteal fossa. Attempted visualization of the ca lf veins was performed. COMPARISON: 06/20/2013 FINDINGS: There is a mild amount of deep venous thrombosis seen distal to the knee, seen within a per schulte vein and the posterior tibial veins. IMPRESSION: There is degenerative sclerosis seen distal to the knee. No more proximal deep venous th rombosis can be seen. Reviewed by: Dean Bradley MD on 02/19/2024 7:11 PM MELINA Approved by: Dean Bradley MD on 02/19/2024 7:11 PM MELINA Station ID: [id number]
[2024-02-19 20:33] LABS: BASOPHILS % (AUTO) 0.5 %; EOSINOPHILS # (AUTO) 0.2 10^3/uL (0.0-0.7); EOSINOPHILS % (AUTO) 2.4 %; HCT - HEMATOCRIT 47.6 % (37.0-47.0); HGB - HEMOGLOBIN 14.9 g/dL (12.0-16.0); LYMPHOCYTES # (AUTO) 1.5 10^3/uL (1.5-3.5); LYMPHOCYTES % (AUTO) 24.3 %; MEAN CORPUSCULAR HEMOGLOBIN 28.6 pg (27.0-31.0); MEAN CORPUSCULAR HGB CONC 31.3 g/dL (32.0-36.0); MEAN CORPUSCULAR VOLUME 91.4 fL (81.0-99.0); MEAN PLATELET VOLUME 10.2 fL (7.9-10.8); MONOCYTES # (AUTO) 0.9 10^3/uL (0.0-1.0); MONOCYTES % (AUTO) 13.9 %; NEUTROPHILS # (AUTO) 3.7 10^3/uL (1.5-6.6); NEUTROPHILS % (AUTO) 58.7 %; PLT - PLATELET COUNT 173 10^3/uL (130-450); RED BLOOD COUNT 5.21 10^6/uL (4.20-5.40); RED CELL DISTRIBUTION WIDTH 13.7 % (12.0-15.0); WHITE BLOOD COUNT 6.3 x10^3/uL (4.8-10.8)
[2024-02-19 20:37] LABS: INR 1.1 (0.8-1.2)
[2024-02-19 20:49] LABS: ALBUMIN 4.2 g/dL (3.2-5.5); ALBUMIN/GLOBULIN RATIO 1.6 (1.0-2.2); BILIRUBIN,TOTAL 0.7 mg/dL (0.2-1.0); CALCIUM 10.1 mg/dL (8.5-10.3); CREATININE 0.9 mg/dL (0.6-1.3); TOTAL PROTEIN 6.8 g/dL (6.4-8.9)
[2024-02-19] MEDS: ENOXAPARIN 100 MG/ML SYRINGE SUBQ STA (20:58)
[2024-02-19 21:14] VITALS: BP 138/74
== END 2024-02-19 21:08 | disposition home or self-care (01) ==
LOC: ED 14:55
DX: I82.452 Acute embolism and thrombosis of left peroneal vein (principal); I82.442 Acute embolism and thrombosis of left tibial vein; Z86.718 Personal history of other venous thrombosis and embolism
CPT/HCPCS: 36415; 80053; 85025; 85610; 93971; 96372; 99284; J1650

== ENCOUNTER 2024-06-01 12:51 | Outpatient (CLI) | payer OTHER ==
--- NOTE | 2024-06-02 11:06 | Ultrasound Report ---
PROCEDURE: Duplex Ext Veins Left INDICATIONS: DVT, on blood thinners TECHNIQUE: Real-time imaging, as well as color and pulse Doppler interrogation, were performed of the lower extr emity deep veins from the inguinal ligament to the popliteal fossa. Attempted visualization of the ca lf veins was performed. COMPARISON: Venous duplex on February 19, 2024. FINDINGS: Compared to prior venous ultrasound dated February 19, 2024, there is mild extension of deep ve nous thrombosis into the distal popliteal vein. As before, there is deep venous thrombosis below the knee within the peroneal and posterior tibial veins. No deep venous thrombosis in the superficial fem oral vein, common femoral vein or greater saphenous vein, where visualized. IMPRESSION: Compared to venous ultrasound dated February 19, 2024, there is mild extension of deep venous thrombosis i nto the distal popliteal vein. As before, there is deep venous thrombosis below the knee in the peron eal and posterior tibial veins. Reviewed by: Dharmesh Rodriguez MD on 06/02/2024 11:04 AM PDT Approved by: Dharmesh Rodriguez MD on 06/02/2024 11:04 AM PDT Station ID: [id number]
== END 2024-06-01 12:52 | disposition home or self-care (01) ==
LOC: DI 12:51
PROVIDERS: ATTEND Registered Nurse
DX: I82.432 Acute embolism and thrombosis of left popliteal vein (principal); I82.451 Acute embolism and thrombosis of right peroneal vein; I82.441 Acute embolism and thrombosis of right tibial vein; Z79.01 Long term (current) use of anticoagulants